=== PATIENT | female | born 1940 | race Caucasian/White ===

== ENCOUNTER 2019-12-24 06:46 | Outpatient (CLI) | payer MEDICARE, OTHER, SELFPAY ==
[2019-12-24 08:00] LABS: Alanine Aminotransferase 26 U/L (4-35); Albumin Level 4.2 g/dL (3.5-5.1); Alkaline Phosphatase 110 U/L (38-126); Aspartate Amino Transferase 28 U/L (14-36); Bilirubin,Total 0.4 mg/dL (0.2-1.3); Blood Urea Nitrogen 16 mg/dL (7-17); Calcium 9.2 mg/dL (8.4-10.2); Carbon Dioxide 33 mmol/L (22-30); Chloride 99 mmol/L (98-107); Estimated Glomerular Filt Rate > 60; Glucose 93 mg/dL (65-105); Potassium 4.8 mmol/L (3.4-5.0); Sodium 140 mmol/L (137-145)
[2019-12-24 08:35] LABS: Vitamin D 25 Hydroxy 68.6 ng/mL
== END 2019-12-24 06:47 | disposition home or self-care (01) ==
LOC: ANHLAB 06:50
PROVIDERS: PCP Emergency Medicine; Visit Provider Emergency Medicine
DX: M15.0 Primary generalized (osteo)arthritis (principal); E55.9 Vitamin D deficiency, unspecified
CPT/HCPCS: 36415; 80053; 82306

== ENCOUNTER 2020-03-28 07:44 | Outpatient (CLI) | payer MEDICARE, OTHER, SELFPAY ==
--- NOTE | ~2020-03-28 | MM_ITS ---
EXAMINATION: MM screening [facility] BI w mariel HISTORY: Screening mammogram TECHNIQUE: Craniocaudal and mediolateral oblique 3-D tomosynthesis images were obtained and synthetic 2-D images were generated. CAD analysis was submitted and interpreted. COMPARISON: Comparison to multiple prior studies sequentially, with oldest reviewed study dated 03/24. BREAST PARENCHYMAL COMPOSITION: There are scattered areas of fibroglandular density. FINDINGS: There is no evidence of suspicious mass, calcification, or architectural distortion to sugg est malignancy in either breast. There has been no suspicious interval change. IMPRESSION: 1. No mammographic evidence of malignancy. 2. Recommend routine screening mammography in one year. BI-RADS Category 1: Negative Reviewed, dictated and finalized at location A.
== END 2020-03-28 07:45 | disposition home or self-care (01) ==
LOC: ANHIMG 07:54
PROVIDERS: PCP Emergency Medicine; Visit Provider Emergency Medicine
DX: Z12.31 Encounter for screening mammogram for malignant neoplasm of breast (principal)
CPT/HCPCS: 77063; 77067

== ENCOUNTER 2021-03-30 08:44 | Outpatient (CLI) | payer MEDICARE, OTHER, SELFPAY ==
--- NOTE | ~2021-03-30 | MM_ITS ---
EXAMINATION: MM screening [facility] w mariel HISTORY: Screening TECHNIQUE: Craniocaudal and mediolateral oblique 3-D tomosynthesis images were obtained and synthetic 2-D images were generated. CAD analysis was submitted and interpreted. COMPARISON: Comparison to multiple prior studies sequentially, with oldest reviewed study dated 03/12. BREAST PARENCHYMAL COMPOSITION: There are scattered areas of fibroglandular density. FINDINGS: There is no evidence of suspicious mass, calcification, or architectural distortion to sugg est malignancy in either breast. There has been no suspicious interval change. IMPRESSION: 1. No mammographic evidence of malignancy. 2. Recommend routine screening mammography in one year. BI-RADS Category 1: Negative Reviewed, dictated and finalized at location A.
== END 2021-03-30 08:45 | disposition home or self-care (01) ==
LOC: ANHIMG 08:45
PROVIDERS: PCP Emergency Medicine; Visit Provider Emergency Medicine
DX: Z12.31 Encounter for screening mammogram for malignant neoplasm of breast (principal)
CPT/HCPCS: 77063; 77067

== ENCOUNTER 2021-05-07 11:07 | Emergency (ER) | payer MEDICARE, OTHER, SELFPAY ==
[2021-05-07 11:22] VITALS: BP 151/92; PULSE 73; RESP 18; TEMP 36.5; O2SAT 98
--- NOTE | 2021-05-07 11:32 | ED.SKABFB ---
HPI - Skin/Abscess/Foreign Bdy General Chief complaint: Skin/Abscess/Foreign Body Stated complaint: infection on belly button Source: patient and RN notes reviewed Mode of arrival: ambulatory History of Present Illness HPI narrative: This is a 80-year-old female that presented to urgent care today with complaints of tenderness in reddening to her bellybutton area. Patient notes that she woke up this morning and while taking a shower she noticed that her bellybutton was reddened, swollen and tender to touch. She did apply peroxide and Neosporin to the site. The patient denies SOB, CP, palpitation, extremity numbness, lightheadedness, dizziness, constipation, diarrhea, chills, or fever. She is being treated for cellulitis Related Data Home Medications Medication Instructions Recorded Confirmed cholecalciferol (vitamin D3) 50 2,000 unit PO DAILY 12/30/19 mcg (2,000 unit) capsule cyanocobalamin (vitamin B-12) 2,500 mcg SUBLINGUAL DAILY 12/30/19 2,500 mcg sublingual lozenge multivit with 1 tablet PO DAILY 12/30/19 njxxuqxu-hufq-FZ-lutein 8 mg iron-400 mcg-300 mcg tablet omeprazole 20 mg tablet,delayed 20 mg PO BID 12/30/19 release ascorbic acid (vitamin C) 500 mg 500 mg PO DAILY 01/05/20 chewable tablet vit C 250 mg-vit E 90 mg-zinc 40 See Rx Instructions .ROUTE .COMPLEX 07/05/20 mg-copper 1 [id number] capsule Allergies Allergy/AdvReac Type Severity Reaction Status Date / Time brimonidine Allergy Unknown Other Verified 05/07/21 11:24 dorzolamide Allergy Unknown Other Verified 05/07/21 11:24 timolol Allergy Unknown Other Verified 05/07/21 11:24 Review of Systems Review of Systems: Narrative: A 14 organ system Review of Systems was performed and pertinent positives included in the HPI, otherwise remaining ROS is negative. All systems reviewed & are unremarkable except as noted in HPI and below PMFSH Past Medical History Medical History (Updated 05/07/21 @ 11:31 by JIMI Luna-C) GERD (gastroesophageal reflux disease) H/O malignant neoplasm of breast Vitamin D deficiency disease Family History Family History Sibling Family history of lymphoma Family history of emphysema Patient's sister is in good health Father Acute myocardial infarction, Onset Age: 62 Mother Family history of malignant neoplasm of breast in first degree relative Other Family history of malignant neoplasm Social History Social History Smoking status: Never smoker Alcohol intake: current Exam Narrative: Exam Narrative: GENERAL: This is a well-nourished, well-developed patient, in no apparent distress. HEAD: normocephalic, atraumatic. EYES: PERRL. Sclera clear/white. Vision is grossly intact. EARS: External ears normal, auditory canals clear and without drainage, TMs normal without perforation. Hearing grossly intact. NOSE: External nose normal with no obvious nasal discharge, nares without redness, no rhinorrhea. THROAT: Mucous membranes moist, posterior pharynx clear. NECK: Neck supple, non-tender without lymphadenopathy, masses or thyromegaly. CARDIOVASCULAR: Regular rate and rhythm without murmurs, gallops, or rubs. RESPIRATORY: Clear to auscultation. Breath sounds equal bilaterally. No wheezes, rales, or rhonchi. GASTROINTESTINAL: Abdomen soft, tender to the abdominal area. Nonedematous to the bellybutton area, nondistended. Bowel sounds are active. No hepato-splenomegaly, or palpable masses. No guarding. SKIN: warm, intact with no suspicious lesions or rash, good texture and turgor. NEURO: awake, alert, and oriented to person, place and time. There were no obvious focal neurologic abnormalities. Steady gait EXTREMITIES: Normal range of motion. No edema. No calf tenderness. Negative Homans sign bilaterally. BACK: Nontender without deformity or crepitance.
== END 2021-05-07 11:47 | disposition home or self-care (01) ==
PROVIDERS: Emergency Provider Nurse Practitioner; PCP Emergency Medicine
DX: L03.311 Cellulitis of abdominal wall (principal); K21.9 Gastro-esophageal reflux disease without esophagitis; Z85.3 Personal history of malignant neoplasm of breast; E55.9 Vitamin D deficiency, unspecified
CPT/HCPCS: 99213; G0463

== ENCOUNTER 2021-05-18 10:03 | Emergency (ER) | payer MEDICARE, OTHER, SELFPAY ==
--- NOTE | 2021-05-18 10:08 | ED.EXTPRO ---
HPI - Extremity Problem General Chief complaint: Extremity Problem,Nontraumatic Stated complaint: Rt middle finger swelling Source: patient and RN notes reviewed Mode of arrival: ambulatory History of Present Illness HPI Narrative: This is a 80-year-old female who presented to urgent care with right index finger swelling and redness. According to patient she reached down to her floor to case picker something and did not realize it was a Wasp. Wasp on her her finger began to swell and became red and purple in color. The patient denies SOB, CP, palpitation, extremity numbness, lightheadedness, dizziness, constipation, diarrhea, chills, or fever. No obvious signs and symptoms of compartmental syndrome patient is able to move extremity affected finger warm to touch Related Data Home Medications Medication Instructions Recorded Confirmed cholecalciferol (vitamin D3) 50 2,000 unit PO DAILY 12/30/19 mcg (2,000 unit) capsule cyanocobalamin (vitamin B-12) 2,500 mcg SUBLINGUAL DAILY 12/30/19 2,500 mcg sublingual lozenge multivit with 1 tablet PO DAILY 12/30/19 skkznnck-fviz-WI-lutein 8 mg iron-400 mcg-300 mcg tablet omeprazole 20 mg tablet,delayed 20 mg PO BID 12/30/19 release ascorbic acid (vitamin C) 500 mg 500 mg PO DAILY 01/05/20 chewable tablet vit C 250 mg-vit E 90 mg-zinc 40 See Rx Instructions .ROUTE .COMPLEX 07/05/20 mg-copper 1 [id number]-kbfwwa capsule Allergies Allergy/AdvReac Type Severity Reaction Status Date / Time brimonidine Allergy Mild Itching Verified 05/18/21 10:36 dorzolamide Allergy Mild Itching Verified 05/18/21 10:36 timolol Allergy Mild Itching Verified 05/18/21 10:36 Review of Systems Review of Systems: Narrative: A 14 organ system Review of Systems was performed and pertinent positives included in the HPI, otherwise remaining ROS is negative. All systems reviewed & are unremarkable except as noted in HPI and below PMFSH Past Medical History Medical History (Updated 05/18/21 @ 10:23 by JIMI Luna-C) GERD (gastroesophageal reflux disease) H/O malignant neoplasm of breast Vitamin D deficiency disease Family History Family History Sibling Family history of lymphoma Family history of emphysema Patient's sister is in good health Father Acute myocardial infarction, Onset Age: 62 Mother Family history of malignant neoplasm of breast in first degree relative Other Family history of malignant neoplasm Social History Social History Smoking status: Never smoker Alcohol intake: current Exam Narrative: Exam Narrative: GENERAL: This is a well-nourished, well-developed patient, in no apparent distress. HEAD: normocephalic, atraumatic. EYES: PERRL. Sclera clear/white. Vision is grossly intact. EARS: External ears normal, auditory canals clear and without drainage, TMs normal without perforation. Hearing grossly intact. NOSE: External nose normal with no obvious nasal discharge, nares without redness, no rhinorrhea. THROAT: Mucous membranes moist, posterior pharynx clear. NECK: Neck supple, non-tender without lymphadenopathy, masses or thyromegaly. CARDIOVASCULAR: Regular rate and rhythm without murmurs, gallops, or rubs. RESPIRATORY: Clear to auscultation. Breath sounds equal bilaterally. No wheezes, rales, or rhonchi. GASTROINTESTINAL: Abdomen soft, non-tender, nondistended. Bowel sounds are active. No hepato-splenomegaly, or palpable masses. No guarding. SKIN: warm, intact with no suspicious lesions or rash, good texture and turgor. NEURO: awake, alert, and oriented to person, place and time. There were no obvious focal neurologic abnormalities. Steady gait EXTREMITIES: Normal range of motion. No edema. No calf tenderness. Negative Homans sign bilaterally. Right index finger edematous with erythema BACK: Nontender without deformit
[2021-05-18 10:10] VITALS: BP 148/80; PULSE 79; RESP 17; TEMP 37.1; O2SAT 99
== END 2021-05-18 10:47 | disposition home or self-care (01) ==
PROVIDERS: Emergency Provider Nurse Practitioner; PCP Emergency Medicine
DX: S60.462A Insect bite (nonvenomous) of right middle finger, initial encounter (principal); W57.XXXA Bitten or stung by nonvenomous insect and other nonvenomous arthropods, initial encounter; L03.011 Cellulitis of right finger; K21.9 Gastro-esophageal reflux disease without esophagitis; Z85.3 Personal history of malignant neoplasm of breast; E55.9 Vitamin D deficiency, unspecified
CPT/HCPCS: 99213; G0463

== ENCOUNTER 2021-07-09 15:42 | Emergency (ER) | payer MEDICARE, OTHER, SELFPAY ==
--- NOTE | ~2021-07-09 | XR_ITS ---
XR chest 2V DATE: 07/09/2021 16:22 INDICATION: PA and lateral views TECHNIQUE: 2 views COMPARISON: 01/25/2015 2 view chest 10/04/2016 CT chest abdomen pelvis FINDINGS: Bilateral hyperinflation. Normal heart size. Aortic calcification and mild unfolding. No hi lar or mediastinal enlargement. There is old pulmonary granulomatous disease. No active infiltrate or consolidation, pleural effusion or pulmonary vascular congestion or pneumothorax is detected. Scoliosis and degenerative spurring of the thoracic spine. Diffuse osteopenia. IMPRESSION: Bilateral hyperinflation; no active cardiopulmonary disease Reviewed, dictated and finalized at location A.
[2021-07-09 15:46] VITALS: BP 153/81; PULSE 145; RESP 18; TEMP 36.9; O2SAT 100
--- NOTE | 2021-07-09 15:49 | ECG_ITS ---
Measurements Intervals Vance Rate: 94 P: 60 MN: 177 QRS: 29 QRSD: 80 T: 42 QT: 328 QTc: 410 Interpretive Statements SINUS RHYTHM VENTRICULAR PREMATURE COMPLEX LEFT ATRIAL ENLARGEMENT BASELINE ARTIFACT- I, II, III, AVR, AVL,A VF BORDERLINE ECG Electronically Signed On 07-09-2021 16:01:16 CDT by Tomy Balderrama D.O.
[2021-07-09 16:57] LABS: Anion Gap 11 mmol/L (8-16); Blood Urea Nitrogen 21 mg/dL (7-17); Calcium 9.6 mg/dL (8.4-10.2); Carbon Dioxide 26 mmol/L (22-30); Chloride 104 mmol/L (98-107); Estimated CRCL calculation 41 ml/min; Estimated Glomerular Filt Rate > 60; Glucose 104 mg/dL (65-110); Sodium 141 mmol/L (137-145)
[2021-07-09 17:01] LABS: INR 0.9; Prothrombin Time 12.4 Seconds (11.1-14.7)
[2021-07-09 17:02] LABS: Partial Thromboplastin Time 29.7 SECONDS (22.3-36.8)
[2021-07-09 17:08] LABS: Troponin I < 0.012 ng/mL (0.000-0.034)
[2021-07-09] MEDS: ASPIRIN 81 MG CHEWABLE TABLET 324 MG PO (17:46)
[2021-07-09 17:47] VITALS: BP 150/75; PULSE 68; RESP 15; O2SAT 99
[2021-07-09 17:51] LABS: Basophils Absolute Auto 0.1 K/mm3 (0.0-0.1); Basophils Percent Auto 1.2 % (0.2-1.2); Eosinophils Absolute Auto 0.1 K/mm3 (0-0.3); Eosinophils Percent Auto 0.6 % (0-4.4); Hematocrit 41.8 % (37.0-47.0); Hemoglobin 13.3 g/dL (12.0-15.0); Immature Granulocyte Absolute 0.04 K/mm3 (0.00-0.031); Immature Granulocyte Percent A 0.4 % (0-0.5); Lymphocytes Absolute Auto 2.34 K/mm3 (0.9-3.2); Lymphocytes Percent Auto 22.6 % (18.3-44.2); Mean Corpuscular HGB Conc 31.8 g/dl (32-36); Mean Corpuscular Hemoglobin 28.3 pg (26-34); Mean Corpuscular Volume 88.9 fl (80-100); Mean Platelet Volume 9.4 fl (7.4-10.4); Monocytes Absolute Auto 0.5 K/mm3 (0.1-0.6); Neutrophils Absolute Auto 7.3 K/mm3 (1.3-6.7); Neutrophils Percent Auto 70.2 % (45.5-73.1); Platelet Count Result 399 k/mm3 (150-375); Red Cell Distribution Width 13.9 % (11.5-14.5); White Blood Count 10.4 K/mm3 (4.5-10.0)
--- NOTE | 2021-07-09 19:32 | ED.GENADULT ---
HPI - General Adult General Chief complaint: Unspecified Stated complaint: failed stress test Time Seen by Provider: 07/09/21 17:29 Source: patient Mode of arrival: ambulatory Limitations: no limitations History of Present Illness HPI narrative: 80-year-old with a history of GERD, here with complaints of having having high heart rate. Patient states that she is scheduled for outpatient stress test this afternoon. While she was just about to start the procedure heart rate went up to 140 EKG was done at that time which showed sinus tach but no evidence of any A. fib. Patient at that time denied having any shortness of breath, nausea or vomiting. She was advised to go to the emergency room for further evaluation. Patient states that she has been having intermittent fast heart rate. No previous history of irregular heartbeat. Onset (ago): hour(s) (2) Relieving factors: none Exacerbating factors: none Associated symptoms: denies other symptoms Related Data Home Medications Medication Instructions Recorded Confirmed cholecalciferol (vitamin D3) 50 2,000 unit PO DAILY 12/30/19 07/04/21 mcg (2,000 unit) capsule multivit with 1 tablet PO DAILY 12/30/19 07/04/21 yvkuejhg-lvza-JS-lutein 8 mg iron-400 mcg-300 mcg tablet omeprazole 20 mg tablet,delayed 20 mg PO BID 12/30/19 07/04/21 release ascorbic acid (vitamin C) 500 mg 500 mg PO DAILY 01/05/20 07/04/21 chewable tablet vit C 250 mg-vit E 90 mg-zinc 40 See Rx Instructions .ROUTE .COMPLEX 07/05/20 07/04/21 mg-copper 1 [id number]-jcbxal-kmudvh capsule Allergies Allergy/AdvReac Type Severity Reaction Status Date / Time brimonidine Allergy Mild Itching Verified 07/09/21 15:45 dorzolamide Allergy Mild Itching Verified 07/09/21 15:45 timolol Allergy Mild Itching Verified 07/09/21 15:45 Review of Systems Review of Systems: All systems reviewed & are unremarkable except as noted in HPI and below Constitutional: Constitutional: Reports no additional constitutional complaints Eyes: Eyes: Reports no additional eye complaints ENT: Reports system reviewed and no additional complaints, except as documented Cardiovascular: Cardiovascular: Reports as per HPI Respiratory: Respiratory: Reports no additional respiratory complaints Gastrointestinal: Gastrointestinal: Reports no additional gastrointestinal complaints Musculoskeletal: Musculoskeletal: Reports no additional musculoskeletal complaints Integumentary/Breasts: Skin/Breast: Reports system reviewed and no additional complaints, except as docu Neurologic: Reports system reviewed and no additional complaints, except as documented Psychiatric: Psychiatric: Reports no additional psychiatric complaints PMFSH Past Medical History Medical History GERD (gastroesophageal reflux disease) H/O malignant neoplasm of breast Vitamin D deficiency disease Family History Family History Sibling Family history of lymphoma Family history of emphysema Patient's sister is in good health Father Acute myocardial infarction, Onset Age: 62 Mother Family history of malignant neoplasm of breast in first degree relative Other Family history of malignant neoplasm Social History Social History Smoking status: Never smoker Alcohol intake: current Gender identity (if verbalized by the patient): Female Exam Narrative: GENERAL: Well-appearing, well-nourished, and in no acute distress. HEAD: Normocephalic, atraumatic. EYES: PERRLA and EOMI. ENT: Nares clear, no rhinorrhea or epistaxis. Mucous membranes moist. NECK: Supple. CHEST: Clear to auscultation. No respiratory distress. HEART: Regular rate and rhythm. No murmur heard. Normal peripheral pulses. ABDOMEN: Soft, nontender, nondistended, normal active bowel sounds. EXTREMITIES: Normal
[2021-07-09 19:51] LABS: Troponin I < 0.012 ng/mL (0.000-0.034)
[2021-07-09 19:59] VITALS: BP 139/81; PULSE 78; RESP 20; O2SAT 100
== END 2021-07-09 20:00 | disposition home or self-care (01) ==
PROVIDERS: Emergency Medicine; Emergency Provider Family Medicine; PCP Emergency Medicine
DX: R00.0 Tachycardia, unspecified (principal); Z87.19 Personal history of other diseases of the digestive system; Z85.3 Personal history of malignant neoplasm of breast; Z51.81 Encounter for therapeutic drug level monitoring; Z79.899 Other long term (current) drug therapy
CPT/HCPCS: 36415; 71046; 80048; 84484; 85025; 85610; 85730; 93005; 99284; A9270

== ENCOUNTER 2022-04-08 08:07 | Outpatient (CLI) | payer MEDICARE, OTHER, SELFPAY ==
--- NOTE | ~2022-04-08 | MM_ITS ---
EXAMINATION: MM screening [facility] w mariel HISTORY: Screening TECHNIQUE: Craniocaudal and mediolateral oblique 3-D tomosynthesis images were obtained and synthetic 2-D images were generated. CAD analysis was submitted and interpreted. COMPARISON: Comparison to multiple prior studies sequentially, with oldest reviewed study dated 03/12. BREAST PARENCHYMAL COMPOSITION: There are scattered areas of fibroglandular density. FINDINGS: There is no evidence of suspicious mass, calcification, or architectural distortion to sugg est malignancy in either breast. There has been no suspicious interval change. IMPRESSION: 1. No mammographic evidence of malignancy. 2. Recommend routine screening mammography in one year. BI-RADS Category 1: Negative Reviewed, dictated and finalized at location A.
== END 2022-04-08 08:08 | disposition home or self-care (01) ==
PROVIDERS: PCP Emergency Medicine; Visit Provider Emergency Medicine
DX: Z12.31 Encounter for screening mammogram for malignant neoplasm of breast (principal)
CPT/HCPCS: 77063; 77067

== ENCOUNTER 2022-12-12 14:20 | Outpatient (CLI) | payer MEDICARE, OTHER, SELFPAY ==
--- NOTE | ~2022-12-12 | MR_ITS ---
EXAMINATION: MR shoulder RT wo con DATE: 12/12/2022 15:28 INDICATION: Right rotator cuff injury. TECHNIQUE: Magnetic resonance imaging (MRI) of the right shoulder was performed without intravenous c ontrast. COMPARISON: None. FINDINGS: Coracoacromial arch: The acromion undersurface is curved in morphology (type II). There is moderate acromioclavicular join t osteoarthritis including inferiorly directed osteophytes. There is moderate subacromial/subdeltoid bursitis. Rotator cuff: There is a full-thickness tear of supraspinatus and infraspinatus tendons measuring 4.5 cm anterior t o posterior by 4.0 cm proximal to distal. There is a partial tear of teres minor tendon. There is sev ere subscapularis tendinopathy. There is volume loss of supraspinatus and infraspinatus muscle bellie s. There is mild fatty atrophy of supraspinatus and teres minor muscle bellies and severe fatty atrop hy of infraspinatus muscle belly. Biceps tendon and glenoid labrum: There is a complete tear of biceps tendon. There is degenerative tearing of the glenoid labrum. Fluid: There is a large glenohumeral joint effusion. Bones/cartilage: There is shallow partial-thickness cartilage loss of glenoid. There is full-thickness cartilage loss of superior humeral head with remodeling of the undersurface of the acromion, consistent with cuff ar thropathy. IMPRESSION: 1. 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 2. Severe chondrosis of humeral head and mild chondrosis of glenoid. 3. Complete tear of proximal biceps tendon. 4. Large glenohumeral joint effusion and moderate subacromial/subdeltoid bursitis. Reviewed, dictated and finalized at location A. OR DISABLED CARER IMPRESSION: 1. 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 2. Severe chondrosis of humeral head and mild chondrosis of glenoid. 3. Complete tear of proximal biceps tendon. 4. Large glenohumeral joint effusion and moderate subacromial/subdeltoid bursit is.
== END 2022-12-12 14:21 | disposition home or self-care (01) ==
PROVIDERS: PCP Emergency Medicine; Visit Provider Emergency Medicine
DX: S46.011A Strain of muscle(s) and tendon(s) of the rotator cuff of right shoulder, initial encounter (principal); M12.811 Other specific arthropathies, not elsewhere classified, right shoulder; M75.101 Unspecified rotator cuff tear or rupture of right shoulder, not specified as traumatic; M94.8X1 Other specified disorders of cartilage, shoulder; S46.211A Strain of muscle, fascia and tendon of other parts of biceps, right arm, initial encounter; M25.411 Effusion, right shoulder; M75.51 Bursitis of right shoulder
CPT/HCPCS: 73221

== ENCOUNTER 2023-04-10 10:13 | Outpatient (CLI) | payer MEDICARE, OTHER, SELFPAY ==
--- NOTE | ~2023-04-10 | MM_ITS ---
EXAMINATION: MM screening [facility] BI w mariel HISTORY: Screening mammogram TECHNIQUE: Craniocaudal and mediolateral oblique 3-D tomosynthesis images were obtained and synthetic 2-D images were generated. CAD analysis was submitted and interpreted. COMPARISON: 04/08/2022, 03/2021, 03/28/2020 bilateral screening mammogram examinations BREAST PARENCHYMAL COMPOSITION: There are scattered areas of fibroglandular density. FINDINGS: Surgical clips are noted in the left lower breast; history of partial left mastectomy for p rior breast cancer There is no evidence of suspicious mass, calcification, or architectural distortio n to suggest malignancy in either breast. There has been no suspicious interval change. IMPRESSION: 1. Status post left partial mastectomy for breast cancer. No mammographic evidence of malignancy. 2. Recommend routine screening mammography in one year. BI-RADS Category 2: Benign finding(s). Reviewed, dictated and finalized at location A. IMPRESSION: 1. Status post left partial mastectomy for breast cancer. No mammographic evide nce of malignancy. 2. Recommend routine screening mammography in one year. BI-RADS Category 2: Benign finding(s).
== END 2023-04-10 10:14 | disposition home or self-care (01) ==
LOC: ANHIMG 10:15
PROVIDERS: PCP Emergency Medicine
DX: Z12.31 Encounter for screening mammogram for malignant neoplasm of breast (principal); Z90.12 Acquired absence of left breast and nipple
CPT/HCPCS: 77063; 77067

== ENCOUNTER 2024-05-05 09:28 | Outpatient (CLI) | payer MEDICARE, OTHER, SELFPAY ==
--- NOTE | ~2024-05-05 | MM_ITS ---
EXAMINATION: MM screening [facility] BI w mariel HISTORY: Screening TECHNIQUE: Craniocaudal and mediolateral oblique 3-D tomosynthesis images were obtained and synthetic 2-D images were generated. CAD analysis was submitted and interpreted. COMPARISON: Comparison to multiple prior studies sequentially, with oldest reviewed study dated 03/20. BREAST PARENCHYMAL COMPOSITION: Not dense: There are scattered areas of fibroglandular density. FINDINGS: There is no evidence of suspicious mass, calcification, or architectural distortion to sugg est malignancy in either breast. There has been no suspicious interval change. IMPRESSION: 1. No mammographic evidence of malignancy. 2. Recommend routine screening mammography in one year. BI-RADS Category 1: Negative Reviewed, dictated and finalized at location B.
== END 2024-05-05 09:29 | disposition home or self-care (01) ==
LOC: ANHIMG 09:30
PROVIDERS: PCP Emergency Medicine; Visit Provider Emergency Medicine
DX: Z12.31 Encounter for screening mammogram for malignant neoplasm of breast (principal)
CPT/HCPCS: 77063; 77067

== ENCOUNTER 2025-01-28 13:01 | Outpatient (CLI) | payer MEDICARE, OTHER, SELFPAY ==
--- NOTE | ~2025-01-28 | DEXA_ITS ---
Bone Density Report Name: NILTON MANZANO Age: 84 Sex: Female Ethnicity: White Date of : 1940 Indication: postmenopausal osteoporosis; height loss; cancer; hysterectomy; Referring Provider: GRETEL BERNSTEIN Study: Bone densitometry was performed. Exam Date: January 28, 2025 Accession number: [id number] Bone Density: Region BMD T-score Z-score Classification AP Spine(L1-L4) 0.770 -2.5 0.4 Osteoporosis Femoral Neck (Left) 0.563 -2.6 -0.1 Osteoporosis Total Hip (Left) 0.735 -1.7 0.6 Osteopenia Femoral Neck (Right) 0.524 -2.9 -0.4 Osteoporosis Total Hip (Right) 0.643 -2.4 -0.1 Osteopenia Total Hip Mean 0.689 -2.1 0.3 Osteopenia World Health Organization criteria for BMD impression classify patients as: Normal (T-score at or above -1.0), Osteopenia (T-score between -1.0 and -2.5), or Osteoporosis (T-score at or below -2.5). 10-year Fracture Risk: FRAX not reported because: Some T-score for Spine Total or Hip Total or Femoral Neck at or below -2.5 Previous Exams: Region Exam Age BMD T-score BMD Change BMD Change Date g/cm2 vs Baseline vs Previous AP Spine (L1-L4) 01/28/2025 84 0.770 -2.5 -0.066 (-7.9%) -0.002 (-0.2%) 03/24/2019 78 0.771 -2.5 -0.064 (-7.7%) -0.018 (-2.3%) 02/12/2017 76 0.790 -2.3 -0.046 (-5.5%) -0.046 (-5.5%) 03/08/2014 73 0.836 -1.9 Total Hip(Left) 01/28/2025 84 0.735 -1.7 -0.059 (-7.5%) 0.003 (0.5%)# 03/24/2019 78 0.732 -1.7 -0.063 (-7.9%) -0.037 (-4.8%) 02/12/2017 76 0.768 -1.4 -0.026 (-3.3%) -0.026 (-3.3%) 03/08/2014 73 0.794 -1.2 Total Hip(Right) 01/28/2025 84 0.643 -2.4 -0.138 (-17.6% -0.021 (-3.2%) 03/24/2019 78 0.665 -2.3 -0.116 (-14.9% -0.052 (-7.3%) 02/12/2017 76 0.717 -1.8 -0.064 (-8.2%) -0.064 (-8.2%) 03/08/2014 73 0.781 -1.3 *Denotes significance at 95% confidence level, LSC for AP Spine = 0.022 g/cm2, LSC for Total Hip = 0.027 g/cm2 # Denotes dissimilar scan types or analysis methods Clinical Information Provided by Patient: Has used the following medications: HRT (i.e. estrogen/hormone therapy), Vitamin D Has the following medical conditions: Cancer, Hysterectomy Patient maximum height was 62 Menopause Age: 49 Drinks caffeinated beverages Onset of menses at age 8 Number of children 1 Impression: The patient has osteoporosis, based on the Right Femoral Neck T-score. No significant bone loss was observed. Discussion: INCREASED RISK OF FRACTURE. BONE DENSITY IS UNDESIRABLY LOW AT ONE OR MORE SKELETAL SITES, CONSISTENT WITH POSTMENOPAUSAL OSTEOPOROSIS. This patient's lowest T-score meets the World Health Organization's (WHO) criteria for osteoporosis at one or more sites (T-score -2.5 or below). In untreated patients, the risk of osteoporotic fracture increases approximately two-fold for each 1.0 SD decrease in T-score. Low bone density is not the only risk factor for fracture; also consider factors such as patient's age, frailty or poor health, risk of falling, risk of injury, previous osteoporotic fracture, family history of osteoporosis, cigarette smoking, low body weight, etc. Not everyone with low bone mineral density has osteoporosis; osteomalacia and other metabolic bone disorders should also be considered. Patients who have osteoporosis should be evaluated for specific diseases and conditions (secondary causes) that may cause or contribute to bone loss. The [place] Association of Clinical Endocrinologists (AACE) and National Osteoporosis Foundation (NOF) recommend pharmacologic intervention for all postmenopausal women whose T-score is in this range. The patient should follow a healthful lifestyle (good nutrition with adequate calcium and vitamin D, and appropriate weight-bearing exercise). Follow-Up: Consider a repeat BMD and Vertebral Fracture Assessment (VFA) exam in 2 years or sooner if medically necessary, to reassess this patient's status. Reported by: MARIO on 01/28/2025 1:41:00 PM. Reviewed, dictated and finalized at location [facility]
--- OUTSIDE RECORDS SUMMARY | 2025-01-28 13:06 | XMS_ITS | Clinical Summary ---
Author Organization [facility] Address [address] [facility], [address] [address] Phone Care Team Providers Care Prop Maker Name Role Phone Stan Hughes MD Primary Care Provider [phone] Tobias Conte DO Unavailable [phone] Allergies Active Allergy Reactions Criticality Noted Date Comments Brimonidine Other (see Comments) 08/29/2016 Eyes itching and burning Medications anastrozole (ARIMIDEX) 1 MG Tablet 6 Active XALATAN 0.005 % Solution Reported on 12/19/2016 6 Active Cholecalciferol (VITAMIN D3) 1000 UNIT Tablet Take by mouth. Activ e oxyCODONE-aceta minophen (PERCOCET) 5-325 MG Tablet Take 1 Tab by mouth every 4 hours as needed for Pain. Reported on 12/19/2016 Active timolol (TIMOPTIC) 0.5 % Solution 6 Active latanoprost (XALATAN) 0.005 % Solution Place 1 Drop in affected eye(s) nightly. Active omeprazole (PRILOSEC) 40 MG CAPSULE DELAYED RELEASE Take 1 Cap by mouth daily. 90 Cap 3 6 Active polyethylene glycol (MIRALAX) Powder Use entire 255g bottle with 64oz of clear liquid as directed for colonoscopy prep. 255 g 0 6 Active Additional Information Patient not taking.Reported on 12/19/2016 CALCIUM PO Take 1 Tab by mouth daily. Active Multiple Vitamins-Minera ls (PRESERVISION AREDS PO) Take 1 Tab by mouth daily. Active Inulin (FIBER CHOICE PO) Take by mouth. Acti ve Probiotic Product (PROBIOTIC DAILY PO) Take by mouth. Activ e hyoscyamine (LEVSIN) 0.125 MG Tablet Take 1 Tab by mouth every 8 hours as needed for Cramping. 60 Tab 0 7 Active Active Problems Problem Noted Date Diagnosed Date Hx of adenomatous colonic polyps 12/19/2016 Esophageal dysmotility 12/19/2016 Gastroesophageal reflux disease 12/19/2016 Immunizations Immunization Administration Dates Next Due Covid-19, Mrna, Lnp-s, Pf, 30 Mcg/0.3 Ml Dose (P fizer) 12/28/2020,12/07/2020 Family History Medical History Relation Name Comments Lung Cancer Brother Heart Disease Father Breast Cancer Mother Cancer Other 1 niece pancreatic Stomach Cancer Other 2 nephew Leukemia/Lymphoma Sister Relation Name Status Comments Brother Father Mother Other 1 niece Alive Other 2 nephew Alive Sister Social History Tobacco Use Types Packs/Day Years Used Date Smoking Tobacco: Never Tobacco Cessation:Counseling Given: Yes Alcohol Use Standard Drinks/Week Comments No 0 (1 standard drink = 0.6 oz pur e alcohol) Comments No Sex and Gender Information Value Date Recorded Sex Assigned at Not on file Legal Sex Female 7:15 PM CDT Gender Identity Not on file Sexual Orientation Not on file 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 on file Not on file Not on file Last Filed Vital Signs Vital Sign Reading Time Taken Comments Blood Pressure 120/72 12/19/2016 1:16 PM [employer] WORK[employer] Pulse 70 12/19/2016 1:16 PM [employer] Temperature 36.9 C (98.4 F) 12/19/2016 1:16 PM [employer] WORKER Respiratory Rate 18 12/19/2016 1:16 PM [employer] WORKER Oxygen Saturation 96% 12/19/2016 1:16 PM [employer] BANK WORKER Inhaled Oxygen Concentration - - Weight 60.4 kg (133 lb 3.2 oz) 12/19/2016 1:16 P M [employer] Height 157.5 cm (5' 2 ) 12/19/2016 1:16 PM [employer] BANK WORKER Body Mass Index 24.36 12/19/2016 1:16 PM [employer]LO[employer] BANK WORKER Plan of Treatment Health Maintenance Due Date Last Done Comments DEXA Bone Density 1940 Hepatitis C Virus (HCV) Screening 1940 Mammogram Unilateral 1940 TdaP Immunization 1940 Zoster Immunization (1 of 2) 1958 Pneumococcal Immunization (5 0+ years) (1 of 1 - PCV) 1989 Respiratory Syncytial Virus (RSV) Immunization (Adult) (1 - 1-dose 75+ series) 2014 SARS-COV-2 Immunization (3 - Pfizer risk series) 01/25/2021 12/28/2020, 12/07/2020 Influenza Immunization (#1) 2024 Hepatitis B Immunization Aged Out No longer eligible based on patient's age to complete this topic Meningococcal Immunization (ACWY) Aged Out No longer eligible b ased on patient's age to complete this topic Rotavirus Immunization Aged Out No lo nger eligible based on patient's age to complete this topic Insurance MEDICARE [facility] Care Teams Prop Maker Relationship Specialty Start Date End Date Stan Hughes MD [address] [place] [address] PCP - General Internal Medicine 08/28/16 Tobias Conte DO [address] [place] [address] Gastroenterology 08/29/16
--- OUTSIDE RECORDS SUMMARY | 2025-01-28 13:06 | XMS_ITS | CONTINUITY OF CARE DOCUMENT ---
Author Name jose garcia Address Unknown Organization [facility] Address [address] [place] [address] [address] [place] [address] Phone [phone] Care Team Providers Care Payloader Operator Name Role Phone jose garcia Unavailable Unavailable INSURANCE PROVIDERS Payer name Policy type / Coverage type [place] red green party ID [employer] [id number] [place] Medicare [id number]
--- OUTSIDE RECORDS SUMMARY | 2025-01-28 13:06 | XMS_ITS | Clinical Summary ---
Author Organization [facility] Address [address] [place] [id number] Care Team Providers Care Black Leather Trimmer Name Role Phone Unavailable Primary Care Provider Unavailabl e Social History Tobacco Use Types Packs/Day Years Used Date Smoking Tobacco: Never Assessed Comments Unknown Sex and Gender Information Value Date Recorded Sex Assigned at Not on file Legal Sex Female 4:13 PM CDT Gender Identity Not on file Sexual Orientation Not on file Plan of Treatment Health Maintenance Due Date Last Done Comments DTaP, Tdap and Td Vaccines ( 1 - Tdap) 1958 Zoster Vaccines (1 of 2) 1989 Pneumococcal Vaccine: 65+ Ye ars (1 of 1 - PCV) 2004 RSV Immunization or 60+ Years (1 - 1-dose 75+ series) 2014 COVID-19 Vaccine ( - 2023-2 5 season) 2024 Influenza Adult (#1) 2024 Meningococcal B Vaccine Aged Out No l onger eligible based on patient's age to complete this topic Meningococcal Vaccine Aged Out No brenda robel eligible based on patient's age to complete this topic RSV Immunizations Under 20 Months Aged Out No longer eligible based on patient's age to complete this topic
--- OUTSIDE RECORDS SUMMARY | 2025-01-28 13:06 | XMS_ITS | Encounter Summary ---
Author Organization [facility] Address [address] [place] [address] Phone Care Team Providers Care Aviation Mechanic Name Role Phone Stan Hughes MD Primary Care Provide r Ruthann Jose DO Unavailable [phone] Nasir Childs MD Unavailable [phone] Marta Cowan SPRING WINDER Unavailable [phone] Encounter Details Date Type Department Care Team (Late st Contact Info) Description 05/01/2020 Orders Only [facility] Scanning, Provider Social History Tobacco Use Types Packs/Day Years Used Date Smoking Tobacco: Never Smokeless Tobacco: Never Alcohol Use Standard Drinks/Week Comments Yes 0 (1 standard drink = 0.6 oz pur e alcohol) Rare AUDIT-C Answer Date Recorded Frequency of Alcohol Consumption Monthly or less 01/11/2019 Average Number of Drinks Not on file 019 Frequency of Binge Drinking Not on file 12/25 Comments No Sex and Gender Information Value Date Recorded Sex Assigned at Not on file Legal Sex Female 6:08 AM TRIAL LAWYER Gender Identity Female 10/24/2020 1:12 PM TRIAL LAWYER Sexual Orientation Not on file documented as of this encounter Plan of Treatment Not on file documented as of this encounter Procedures Procedure Name Priority Date/Time Associated Diagnosis Comments SCAN - LABS 05/01/2020 documented in this encounter Results * SCAN - LABS (05/01/2020) us Provider Scanning Final Result documented in this encounter Visit Diagnoses Not on filedocumented in this encounter Additional Health Concerns Infection Onset Date Last Indicated Resolved Time COVID: Suspected 05/01/2020 05/01/2020 05/15/2020 3:06 AM CDT documented as of this encounter Care Teams Aviation Mechanic Relationship Specialty Start Date End Date Stan Hughes MD [address] [place] [address] PCP - General 01/09/17 Ruthann Jose DO [address] [place] [address] Referring Physician General Surgery 06/30/18 Nasir Childs MD [address] [place] [address] Medical Oncologist/Director Of Casework Services Hematology and Oncology 04/07/19 07/02/22 Marta Cowan NP [address] [place] [id number] Nurse Practitioner Medical Oncology 07/03/22 documented as of this encounter
--- OUTSIDE RECORDS SUMMARY | 2025-01-28 13:06 | XMS_ITS | Continuity of Care Document ---
Author Name [facility] Organization [facility] Care Team Providers Care Braiding Machine Operator Name Role Phone [facility] Unavailable Unavailable Medications Combined list of outpatient medications from Department of Defense and Veterans Affairs facilities.Medications provided include 1) outpatient medications from the last 15 months, and 2) patient-reported medications. Medication Details Route Status Patient Instructions Prescription Expires Prescription Number Last Dispense Date Ordering Provider Order Date Order Qty Source apixaban 2.5 mg tablet 2.5 mg, Oral, BID, # 180 EA, 3 total refill(s ), Hard Stop Oral (given by mouth) Ordered 2025 5 2024 180.0 Ambulat ory Pharmac y Eliquis 2.5 mg tablet See Instruct ions, # 180 EA, 3 total refill(s ), Hard Stop Complet ed 12/10/2024 4 2024 180.0 Ambulat ory Pharmac y Eliquis 2.5 mg tablet See dose instruct ions in comments , # 180 EA, 1 total refill(s ), Acute Complet ed 09/09/2023 3 2022 180.0 Ambulat ory Pharmac y Eliquis 2.5 mg tablet See dose instruct ions in comments , # 180 EA, 3 total refill(s ), Acute Complet ed 10/14/2023 3 2022 180.0 Ambulat ory Pharmac y latanoprost 0.005% eye drops [2.5mL] See Instruct ions, 0, # 2 mL, 5 total refill(s ), Hard Stop Discont inued 01/21/2025 4 2024 2.5 Ambulat ory Pharmac y latanoprost 0.005% eye drops [2.5mL] See Instruct ions, # 2.5 mL, 3 total refill(s ), Hard Stop Discont inued 07/03/2023 3 2022 2.5 Ambulat ory Pharmac y latanoprost 0.005% eye drops [2.5mL] See Instruct ions, # 2 mL, 5 total refill(s ), Hard Stop Discont inued 04/01/2024 4 2023 2.5 Ambulat ory Pharmac y latanoprost 0.005% eye drops [2.5mL] See Instruct ions, Eye-Both , # 7.5 mL, 4 total refill(s ), Soft Stop Both eyes Ordered 5 2024 7.5 Ambulat ory Pharmac y latanoprost 0.005% eye drops [2.5mL] See Instruct ions, # 2 mL, 3 total refill(s ), Hard Stop Discont inued 11/26/2023 4 2023 2.5 Ambulat ory Pharmac y metoprolol succinate ER 25 mg/24 hour tablet 25 mg, Oral, Daily, # 30 EA, 11 total refill(s ), Hard Stop Oral (given by mouth) Ordered 2025 5 2024 30.0 [address]ulat ory Pharmac y omep[address] 40 mg capsule 40 mg, # 90 EA, 3 total refill(s ), Acute Complet ed 03/23/2024 4 2023 90.0 Ambulat ory Pharmac y omeprazole DR 40 mg capsule 40 mg, Oral, Daily, # 90 EA, 3 total refill(s ), Hard Stop Oral (given by mouth) Ordered 03/17/2025 5 2024 90.0 Ambulat ory Pharmac y timolol 0.5% eye drops (gel forming) [5mL] See dose instruct ions in comments , # 10 mL, 4 total refill(s ), Acute Complet ed 02/17/2024 4 2023 10.0 Ambulat ory Pharmac y timolol 0.5% eye drops (gel forming) [5mL] See Instruct ions, Eye-Both , # 20 mL, 4 total refill(s ), Hard Stop Both eyes Ordered 11/10/2025 5 2024 20.0 Ambulat ory Pharmac y timolol 0.5% eye drops (gel forming) [5mL] = 1 drop(s), Eye-Both , every morning, # 10 mL, 4 total refill(s ), Hard Stop Both eyes Discont inued 11/16/2024 4 2024 10.0 Ambulat ory Pharmac y Immunizations Combined list of available immunizations from the Department of Defense and Veterans Affairs facilities. Immunization Series Date Given Administered By Site Reaction Lot Number CVX Code Drug Assistant Spa Manager Status Comments Source tetanus-dipht h toxoids (Td) adult/adol 2016 zzLef t Arm [id number] sanofi pasteur complet ed tetanus-d iphth toxoids (Td) adult/ado l 08/14/17 Given Ambulat ory Pharmac y influenza, injectable, quadrivalent- pf 2016 zzLef t Arm [id number] [employer] complet ed influenza , injectabl e, quadrival ent-pf 08/14/17 Given Ambulat ory Pharmac y pneumococcal polysaccharid e, 23 valent [facility] [id number] [employer] complet ed pneumococ pam polysacch aride, 23 valent 08/14/17 Given Ambulat ory Pharmac y pneumococcal 13-valent conjugate (PCV13) 2015 zzRig Shoplins Arm [id number] expressor software complet ed pneumococ pam 13-valent conjugate (PCV13) 08/13/16 Given Ambulat ory Pharmac y influenza, seasonal, injectable 2010 zzLef t Arm [id number] sanofi pasteur complet ed influenza , seasonal, injectabl e 07/30/11 Given Ambulat ory Pharmac y influenza virus vaccine,split 2009 zzLef t Arm [id number] [employer] complet ed influenza virus vaccine,s plit 08/03/10 Given Ambulat ory Pharmac y zoster vaccine live 2007 zzLef t Arm [id number] [employer] complet ed zoster vaccine live 08/16/08 Given Ambulat ory Pharmac y tetanus, diphtheria, acellular pertu is 2005 zzRig ht Arm [id number] 115 sanofi pasteur complet ed tetanus, diphtheri a, acellular pertussis 07/09/06 Given Ambulat ory Pharmac y tuberculin purified protein derivative 2005 zzLef t Arm [id number] 96 sanofi pasteur complet ed Patient Tolerance : Negative Ambulat ory Pharmac y influenza virus vaccine,split 2004 zzLef t Arm 15 complet ed influenza virus vaccine,s plit 09/10/05 Given Ambulat ory Pharmac y tuberculin purified protein derivative 2004 zzLef t Arm [id number] 96 sanofi pasteur complet ed Patient Tolerance : Negative Ambulat ory Pharmac y influenza virus vaccine,split 2003 15 complet ed influenza virus vaccine,s plit 09/12/04 Given Ambulat ory Pharmac y hepatitis B adult vaccine 2003 zzLef t Arm [id number] 43 [employer] complet ed hepatitis B adult vaccine 07/23/04 Given Ambulat ory Pharmac y hepatitis B adult vaccine 2003 zzLef t Arm [id number] 43 complet ed hepatitis B adult vaccine 02/20/04 Given Ambulat ory Pharmac y tetanus-dipht h toxoids (Td) adult/adol 2003 zzLef t Arm [id number] sanofi pasteur complet ed tetanus-d iphth toxoids (Td) adult/ado l 02/20/04 Given Ambulat ory Pharmac y hepatitis B adult vaccine 2003 zzLef t Arm [id number] 43 complet ed hepatitis B adult vaccine 01/18/04 Given Ambulat ory Pharmac y tuberculin purified protein derivative 2003 zzLef t Arm [id number] 96 sanofi pasteur complet ed Patient Tolerance : Negative Ambulat ory Pharmac y influenza virus vaccine, whole virus 2002 zzLef t Arm [id number] 16 sanofi pasteur complet ed influenza virus vaccine, whole virus 08/10/03 Given Ambulat ory Pharmac y tuberculin purified protein derivative 2001 zzLef t Arm [id number] 96 sanofi pasteur complet ed Patient Tolerance : Negative Ambulat ory Pharmac y tuberculin purified protein derivative 2000 96 complet ed Patient Tolerance : Negative Ambulat ory Pharmac y influenza virus vaccine, whole virus 2000 zzLef t Arm [id number] 16 sanofi pasteur complet ed influenza virus vaccine, whole virus 08/26/01 Given Ambulat ory Pharmac y tuberculin purified protein derivative 1999 zzLef t Arm [id number] 96 sanofi pasteur complet ed Patient Tolerance : Negative Ambulat ory Pharmac y influenza virus vaccine, whole virus 1999 zzLef t Arm [id number] 16 expressor software complet ed influenza virus vaccine, whole virus 09/10/00 Given Ambulat ory Pharmac y tuberculin purified protein derivative 1998 96 complet ed Patient Tolerance : Negative Ambulat ory Pharmac y tuberculin purified protein derivative 1998 [id number] [facility] complet ed Patient Tolerance : Negative Ambulat ory Pharmac y influenza virus vaccine, whole virus 1998 16 complet ed influenza virus vaccine, whole virus 08/24/99 Given Ambulat ory Pharmac y hepatitis B adult vaccine 1998 43 complet ed hepatitis B adult vaccine 04/09/99 Given Ambulat ory Pharmac y tuberculin purified protein derivative [id number] 96 [facility] complet ed Patient Tolerance : Negative Ambulat ory Pharmac y hepatitis B adult vaccine 1989 zzLef t Arm 43 complet ed hepatitis B adult vaccine 04/15/90 Given Ambulat ory Pharmac y hepatitis B adult vaccine 1988 zzLef t Arm 43 complet ed hepatitis B adult vaccine 07/23/89 Given Ambulat ory Pharmac y hepatitis B adult vaccine 1988 zzLef t Arm 43 complet ed hepatitis B adult vaccine 06/06/89 Given Ambulat ory Pharmac y Procedures Combined list of: 1) Procedures from Department of Veterans Affairs facilities going back up to thelast 18 months, not all VA non-surgical procedures are included; 2) All procedures from the Department of Defense facilities. Procedure Procedure Type Code Date Perfomer Comments Sourc e No data available for this section Ambulatory P harmacy Assessment and Plan Combined list of future care activities from Department of Defense and Veterans Affairs facilities (e.g., assessment and plan notes, appointments, orders, and referrals). Additional future care activities may be listed in the Plan of Care section. Result Assessment and Plan Date Source Assessment and Plan No data available for this section 01/28/2025 Ambulatory Pharmacy Functional Status Combined list of recent functional and cognitive assessments recorded at Department of Defense and Veterans Affairs (VA).VA Functional [place] Measurement (FIM) Scale: 1 = Total Assistance (Subject = 0% +), 2 = Maximal Assistance (Subject = 25% +), 3 = Moderate Assistance (Subject = 50% +), 4 = Minimal Assistance (Subject = 75% +), 5 = Supervision, 6 = Modified [place] (Device), 7 = Complete [place] (Timely, Safely). Assessment Date/Time Source Assessment Type Assessment Skill Assessment Score Assessment Details No data available for this section
--- OUTSIDE RECORDS SUMMARY | 2025-01-28 13:06 | XMS_ITS | Clinical Summary ---
Author Organization [facility] Address [address] [place] [address] Care Team Providers Care Folder Inspector Name Role Phone Stan Hughes MD Primary Care Provider [phone] Allergies Active Allergy Reactions Criticality Noted Date Comments Brimonidine Other (See Comments) 08/29/2016 Eyes itching and burning Medications cholecalciferol, vitamin D3, 1,000 unit Take by mouth. Active omeprazole (PriLOSEC) 40 mg Capsule, Delayed Release(E.C.) Take 20 mg by mouth . 08/29/2016 Active timolol (TIMOPTIC) 0.5 % solution 08/09/2016 Active vit C/E/Zn/coppr/lut ein/zeaxan (PRESERVISION AREDS-2 ORAL) Take 1 Tablet by mouth. Active multivitamin/iro n/folic acid (CENTRUM COMPLETE ORAL) Take by mouth. 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, estrogen receptor positive 03/31/2018 Aromatase inhibitor use 03/31/2018 Family History Medical History Relation Name Comments Breast Cancer Maternal Grandmother Breast Cancer Mother at ag e 58 Relation Name Status Comments Maternal Grandmother Mother Social History Tobacco Use Types Packs/Day Years Used Date Smoking Tobacco: Never Smokeless Tobacco: Never Alcohol Use Standard Drinks/Week Comments Yes 0 (1 standard drink = 0.6 oz pur e alcohol) occassionally Comments No Sex and Gender Information Value Date Recorded Sex Assigned at Not on file Legal Sex Female 9:24 AM CDT Gender Identity Not on file Sexual Orientation Not on file Last Filed Vital Signs Vital Sign Reading Time Taken Comments Blood Pressure 147/82 03/31/2019 8:51 AM CDT Pulse 73 03/31/2019 8:51 AM CDT Temperature 36.8 C (98.2 F) 03/31/2019 8:51 AM CDT Respiratory Rate - - Oxygen Saturation 96% 03/31/2019 8:51 AM CDT Inhaled Oxygen Concentration - - Weight 62.1 kg (136 lb 12.8 oz) 03/31/2019 8:51 AM CDT Height 160 cm (5' 3 ) 03/31/2019 8:51 AM CDT Body Mass Index 24.23 03/31/2019 8:51 AM CDT Plan of Treatment Health Maintenance Due Date Last Done Comments DTAP/TDAP/TD VACCINES (1 - Tdap) 1959 PNEUMOCOCCAL VACCINE 50+ YEARS (1 of 1 - PCV) 10/25/19 89 ZOSTER VACCINE (1 of 2) 1989 OSTEOPOROSIS SCREENING 2004 RSV VACCINE (60+ or ) (1 - 1-dose 75+ series) 2014 INFLUENZA VACCINE (#1) 2024 Insurance MEDICARE PART A AND B [employer] Care Teams Folder Inspector Relationship Specialty Start Date End Date Stan Hughes MD [address] [address] PCP - General Internal Medicine 03/31/18
--- OUTSIDE RECORDS SUMMARY | 2025-01-28 13:06 | XMS_ITS | Clinical Summary ---
Author Organization [facility] Address [address] [place] [id number] Care Team Providers Care Store Sales Consultant Name Role Phone Stan Hughes MD Primary Care Provide r Ruthann Jose DO Unavailable [phone] Marta Cowan BANANA RIPENING ROOM SUPERVISOR Unavailable [phone] Allergies Active Allergy Reactions Criticality Noted Date Comments Povidone-Iodine Other (See comments) Low 06/23/2018 Pt says 10% Betadine swab used on ocular surface prior to injection caused Blepharitis Brimonidine Tartrate Itching,Swelling Medium 6 Dorzolamide Itching Low Medications vitamins A,C,D-kbzh-idhtlf (ICAPS) [id number],320-226-200 jpbs-ni-gvmw capsule 2 tablets by mouth daily in the morning Active cholecalciferol (VITAMIN D-3) 2,000 unit tabletIndications :Vitamin D Deficiency Take 1 tablet (2,000 Units total) by mouth every morning Active ftemxops-aor-XC-l ycopen-lutein 0.4-300-250 mg-mcg-mcg tabletIndications :Vitamin Deficiency Prevention Take 1 tablet by mouth every morning Active ascorbic acid (VITAMIN C) 500 mg tablet,chewableIn dications:Vitamin C Deficiency Take 1 tablet/chew tab (500 mg total) by mouth every morning Active omeprazole (PriLOSEC) 40 mg capsuleIndication s:Stress Ulcer Prophylaxis Take 1 capsule (40 mg total) by mouth daily before breakfast 90 capsule 3 4 03/17/20 25 Active metoprolol XL (TOPROL-XL) 25 mg extended release tablet Take 1 tablet (25 mg total) by mouth daily 30 tablet 11 4 10/25/20 25 Active apixaban (ELIQUIS) 2.5 mg tabletIndications :atrial fibrillation Take 1 tablet (2.5 mg total) by mouth 2 (two) times a day 180 tablet 3 4 Active timolol (TIMOPTIC-XE) 0.5 % ophthalmic gel-formingIndica tions:Primary open angle glaucoma (POAG) of both eyes, severe stage Administer into both eyes 2 (two) times a day Please allow a 90 day supply. 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 May for surgical consult but ultimately elected to observe for now. F/u in 6 mos. Assessment & Plan (08/13/2024 9:19 AM CDT): To see Dr May to see if treating band K and Elschnig pearls may be appropriate, difficult to see the retina at this point Regurgitation of food 08/27/2023 Other thrombophilia 10/14/2022 Ascending aortic aneurysm 04/15/2022 Chronic anticoagulation 10/08/2021 Other chest pain 08/28/2021 Hospital discharge follow-up 08/28/2021 PAF (paroxysmal atrial fibrillation) 08/27/2021 Cystoid macular edema of left eye 03/20/2021 Assessment & Plan (02/06/2024 10:01 AM CDT): Noncentral and stable with central GA Esophageal dysphagia 04/19/2020 Overview (04/19/2020): Added automatically from request for surgery [id number] Uveitis of left eye 12/02/2019 Assessment & Plan (12/03/2019 9:27 AM SHEET TESTER): Inflammation improving following intravitreal injection of antibiotics yesterday. Assessment & Plan (12/02/2019 10:22 AM SHEET TESTER): There is significant cell in the anterior and posterior chamber of the left eye. The view to the posterior pole was quite difficult but by ultrasound the retina appears attached. In the vitreous cavity on ultrasound there appears to be cell as well. I am concerned that this may represent an infectious and ophthalmitis, recommended vitreous biopsy followed by antibiotic injection to the left eye today. We will also start topical steroid after the antibiotics are in place. I have discussed the risks and benefits of the procedures and the guarded prognosis patient understands her current situation wished to proceed. Left endophthalmia 12/02/2019 Assessment & Plan (08/13/2024 9:19 AM CDT): Remote history of infection, treated Assessment & Plan (03/14/2020 9:04 AM CDT): Status post (s/p) tap inject OS and resolved Assessment & Plan (12/29/2019 8:42 PM SHEET TESTER): In setting of GDD (s/p) vitreous tap and intravitreal antibiotic injection (vancomycin and ceftazidime) to the left eye 12/02/19 Resolved No growth to date, +PMN's. Last week she had increased inflammation after tapering PF. Quiet now on PF QID, slow taper. Assessment & Plan (12/23/2019 9:34 AM SHEET TESTER): In setting of GDD status post (s/p) vitreous tap and intravitreal antibiotic injection (vancomycin and ceftazidime) to the left eye 12/02/19 Resolved No growth to date, +PMN's. She does have increased inflammation today after tapering PF. No hypopyon or conj injection Back up to QID on PF and f/u next week Assessment & Plan (12/10/2019 10:48 AM SHEET TESTER): In setting of GDD status post (s/p) vitreous tap and intravitreal antibiotic injection (vancomycin and ceftazidime) to the left eye 12/02/19 Resolved No growth to date, +PMN's. OK to stop topical cipro Consider tapering pred forte (PF) QID Assessment & Plan (12/06/2019 9:27 AM SHEET TESTER): 4 days status post (s/p) vitreous tap and intravitreal antibiotic injection (vancomycin and ceftazidime) to the left eye. Patient continues to improve: Denies eye pain, better VA. No growth to date, +PMN's. Continue Pred Forte 4 times a day in the left eye and topical cipro QID OS, timolol qAM OS See Dr. Barrios this week. Assessment & Plan (12/04/2019 9:14 AM SHEET TESTER): Continues to improve following vitreous tap and intravitreal antibiotic injection (vancomycin and ceftazidime) to the left eye. Denies eye pain, improved VA. No growth to date, +PMN's. Continue Pred Forte 4 times a day in the left eye and topical cipro QID OS, timolol qAM OS RTC Friday at 9:30am Assessment & Plan (12/03/2019 9:30 AM SHEET TESTER): Improving following vitreous tap and intravitreal antibiotic injection to the left eye. No growth to date, +PMN's. Recommended she continue Pred Forte 4 times a day in the left eye, and begin topical cipro QID OS. The patient will obtain a new bottle of timolol for use in the left eye. RTC one day. Assessment & Plan (12/02/2019 5:07 PM SHEET TESTER): Likely endophthalmitis, recommend intravitreal injections and vitreous tap. Risks, benefits, alternatives reviewed with patient. Patient understands wished to proceed. Peripheral visual field defect of right eye 06/27 Overview (07/09/2019): Added automatically from request for surgery [id number] Keratitis 02/08/2019 Ptosis of eyelid, right 12/16/2018 Malignant neoplasm of lower- outer quadrant of left breast of female, estrogen receptor positive 06/25/2018 Pseudophakia, both eyes 04/21/2018 Assessment & Plan (01/19/2025 2:31 PM CDT): Elizabeth. Observe. Assessment & Plan (05/18/2024 8:39 AM CDT): Stable. Observe. Assessment & Plan (09/24/2023 11:37 AM SHEET TESTER): Stable. Observe. 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 Check thin blebs at every visit Assessment & Plan (01/19/2025 2:31 PM CDT): IOP too high on 1 class today. CPM with chester 0.5% gfs bid OU. Add latanoprost qhs OU. F/u with Dr. Fang in 3 mos as scheduled. F/u with Laurel in 6 mos. Assessment & Plan (09/14/2024 2:02 PM SHEET TESTER): here for follow up IOP right eye Seen yesterday by Dr. Isbell IOP was in 50s OD started on 4 classes OU and diamox IOP /11 today on exam bleb appears elevated and looks like there is flow suspect possible temporary occlusion of the xen? seen with Dr. Fang f/u 1 week iop check plan: continue simbrinza/timolol/latanprost OD continue latan/timolol OS stop diamox Assessment & Plan (09/13/2024 4:35 PM SHEET TESTER): IOP elevated to 65mmHg OD on presentation today. Pt reports pain in right eye started last and has been intermittent since then. There is still a bleb present superiorly, however, the pressure suggests that the xen is not functioning. IOP OD was lowered to 50 mmHg in office with PO diamox and topical timolol/brim/dorz. Discussed case with glaucoma fellow. They are agreeable to seeing the patient tomorrow. Dispensed 4 250mg tablets of diamox to the patient today and advised her to take two pills at dinner time and two pills upon waking in the morning. I dispensed a bottle of Simbrinza for bid dosing OD. She is to use her latanoprost OU and timolol bid OU tonight and tomorrow morning. Follow up tomorrow with the glaucoma service. Assessment & Plan (05/17/2024 11:43 AM CDT): Intraocular pressure (IOP) today 15/20, off drops OD If intraocular pressure (IOP) increases right eye (OD) or left eye (OS), need to add additional drop therapy Latanoprost at bedtime (QHS) OS, Timolol BID left eye (OS) RTC 4mo for Win visual field (HVF) and intraocular pressure (IOP) check Assessment & Plan (04/01/2024 11:19 AM CDT): IOP OD below goal - ok for single digits but will try to stop timolol OD. If IOP low teens ok to observe OS - GVF with paracentral scotoma - at this IOP and since she does not notice severe changes, ok to observe. With band K, diode next option and could cause issues with vision loss. HVf OD with paracentral island in sup arc - relatively stable. Obs If IOP OD high teens or OS in mid 20's, please send back IOP check 6-8 weeks off timolol OD with Dr. Mayfield Assessment & Plan (02/06/2024 10:03 AM CDT): Followed by Dr Mcgregor and has appt in March Assessment & Plan (11/25/2023 11:14 AM SHEET TESTER): On chester OU and xal OS. IOP OD slightly low but no choroidals and will keep glaucoma under good control S/P XEN OD. For OS no need for vit - can destabilize lens. Do not rec another procedure OS given atrophy in macula and risk. Given her age, do not rec diode OS unless IOP in 20's. She prefers a conservative approach Will recheck IOP with me GVF OS and HVF OD Assessment & Plan (09/24/2023 12:59 PM SHEET TESTER): Goal IOP mid teens OU. IOP above goal OS and having some discomfort with latanoprost. Cannot tolerate brimonidine and dorzolamide. Tolerating timolol. CPM with timolol QAM OU and QHS OS. Can consider holding timolol OD given low iop. Schedule for consult with Dr. Mcgregor given iop above goal OS on nearly max drops. Assessment & Plan (07/03/2023 1:24 PM CDT): Goal iop at mid teens OU per Dr. Mcgregor's last notes. IOP at goal OD but above goal OS at 22mmHg today. Taking timolol GFS qam OU. Supratherapeutic OD. Very thin bleb OD with conj thinning adjacent to tube, but lindsay negative today. Sensitivities to brimonidine and dorzolamide. D/c latanoprost due to orbitopathy. Given minimal contraindication to latanoprost, will resume taking this OS. Continue the timolol qam OS only. Okay to d/c timolol OD given low iop. F/u iop ck in 2 mos. Assessment & Plan (02/18/2023 2:43 PM CDT): Goal of stability and iop at mid teens OU per Dr. Mcgregor's last note. IOP at goal OD at 10mmHg but borderline OS at 15mmHg. tonopen readings from recent retina appts near 20 OS. Taking timolol GFS qam OU. Sensitivities to brimonidine, dorzolamide and latanoprost. VF stable OD. VF concerning for progression sup temp OS. Shorten follow up to return in 3 months for repeat VF + IOP check + bleb check. Assessment & Plan (06/26/2021 10:32 AM CDT): Intra-ocular pressure return on a tree was in the 20s and when I recheck with applanation he was also 20 in both eyes. This is a solitary rading for her and I will have her see the glaucoma doctor soon to re-evaluate and determine if any additional pharmacotherapy is essentially at this time. Assessment & Plan (04/04/2020 8:42 AM CDT): Feeling much better with lubrication OD OS on pred QID - dec to TID X 2 weeks then BID X 2 weeks then daily until sees Dr. Schmitt If no cell then ok to dc F/U with me prn issues - please check bleb Q3-4mo and if leak OD refer back for possible needling. Assessment & Plan (12/30/2019 9:42 AM SHEET TESTER): Bleb leak noted 2 weeks ago which resolved on emycin and timolol - lindsay negative last week although leak site was very thing. - No leak, if recurrs will needle to decompress bleb. - use genteal gel PM For OS - taper pred to BID then continue taper. F/U Dr. Jones as scheduled in a few weeks for steroid taper. Recheck every 3mo - discussed s/s endolpho and blebitis F/U with me 3-4 mo bleb check Assessment & Plan (12/23/2019 9:32 AM SHEET TESTER): IOP check following recent episode of endophthalmitis OS is doing ok from a pressure perspective. IOP at goal on one agent. Bleb leak noted at last visit. Started on emycin and timolol last visit - today the bleb is much better. Lindsay negative although the site of the leak is still thin. - continue ointment and timolol this week RTC 1 week. Pt prefers Assessment & Plan (12/17/2019 10:56 AM SHEET TESTER): IOP check following recent episode of endophthalmitis OS is doing ok from a pressure perspective. IOP at goal on one agent. OD however has a new bleb leak. 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 OD S/p XEN 01/27/19 --off pred and intraocular pressure (IOP) doing well OS --s/p XEN/MMC - then erosion --s/p Molteno --IOP at goal today on current treatment --timolol qAM on left only Discussed light sensitivity is 2/2 to combination of AMD/POAG, continue filter glasses Follow with optom, send back to me if pressures elevated above mid teens despite max gtts. Please check thin bleb every visit. 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 Given better vision pt opts for less invasive option. Will place ab interno XEN with air and 40mcg. 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 F/u in 6 mos for repeat dfe with mac OCT. Assessment & Plan (09/13/2024 4:36 PM SHEET TESTER): Follows with Dr. Barrios. Keep f/u with him as scheduled. Assessment & Plan (05/18/2024 8:39 AM CDT): Keep f/u with Dr. Barrios as scheduled. Assessment & Plan (02/06/2024 10:02 AM CDT): Continue VIVIANE2 and Serena Assessment & Plan (09/24/2023 12:59 PM SHEET TESTER): Keep f/u with Dr. Barrios as scheduled. Assessment & Plan (07/03/2023 1:25 PM CDT): Stable. AREJUSTICE and Serena. Assessment & Plan (03/07/2023 10:06 AM CDT): AG and AREDS2 - continue Assessment & Plan (02/18/2023 2:43 PM CDT): Keep f/u with Dr. Barrios as scheduled. Assessment & Plan (11/05/2022 10:35 AM SHEET TESTER): With overlying ERM Serena AREDS2 Assessment & Plan (07/09/2022 11:21 AM CDT): She has drusen, pigmentary abnormalities and an overlying epiretinal membrane with vitreomacular traction. Given that the vision is relatively good in the symptomatology although she has distortion relatively mild I would recommend observation. Serena AREDS2 Assessment & Plan (08/29/2020 8:28 AM SHEET TESTER): OD drusen with overlying VMT AREDS2 Serena Assessment & Plan (03/14/2020 9:04 AM CDT): CME with ERM AREDS2 Serena Assessment & Plan (09/28/2019 10:44 AM SHEET TESTER): ERM with CME Assessment & Plan (06/01/2019 10:30 AM CDT): Amsler/AREDS2 Exudative age-related macula r degeneration of left eye with active choroidal neovascularization 08/06/2016 Assessment & Plan (01/19/2025 2:30 PM CDT): No signs of exudative disease. Repeat dfe with mac OCT at f/u in 6 mos. Assessment & Plan (09/13/2024 4:37 PM SHEET TESTER): Limited visual potential. Follows with Dr. Barrios. Keep f/u with him as scheduled. 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 Barrios as scheduled. Assessment & Plan (02/06/2024 10:02 AM CDT): H)/o injections, now stable with central GA Assessment & Plan (09/24/2023 12:59 PM SHEET TESTER): Keep f/u with Dr. Barrios as scheduled. Assessment & Plan (08/08/2023 11:22 AM CDT): Had epiretinal membrane (ERM) removal left eye (OS) has central atrophy and surrounding cystoid macular edema (CME) largely degenerative with history of antivegf and steroid injections + glaucoma Assessment & Plan (07/03/2023 1:25 PM CDT): Last injection in 2020. Stable today. Released to me to monitor per Dr. Barrios but pt prefers to see Dr. Barrios for follow up. Schedule for follow up with Dr. Barrios. Assessment & Plan (03/07/2023 10:06 AM CDT): Last injection 2020, Stable, monitor Assessment & Plan (02/18/2023 2:43 PM CDT): Keep f/u with Dr. Barrios as scheduled. Assessment & Plan (11/05/2022 10:35 AM SHEET TESTER): Stable central atrophy and surrounding CME , h/o VMT and erm s.p PPV Assessment & Plan (07/09/2022 11:21 AM CDT): Stable OS with central atrophyS/ p PPV OS Have discussed PPV OD vs observation, and she is stable and would like to observe Assessment & Plan (03/05/2022 10:31 AM CDT): Stable OS with central atrophy Assessment & Plan (10/30/2021 10:20 AM SHEET TESTER): CME and vision remain stable to slightly improve from last visit. H/o triesence in 02/2021 and avastin 12/2020. Assessment & Plan (08/21/2021 10:39 AM CDT): Also had h/o ERM with CME sp PPV CME is worse but foveal clear of cysts with underlying atrophy H/o triesence in 02/2021 and avastin 12/2020 Observe for now and consider inj if central edema recurs Assessment & Plan (06/26/2021 10:28 AM CDT): She had an excellent response to intravitreal triamcinolone that she received in February 2021. She has done very well with a combination of anti VEGF pharmacotherapy and intravitreal steroids. The macular edema at this time in the left eye that usually overlies an area of geographic atrophy has completely resolved. The subretinal hemorrhage is also resolving. Assessment & Plan (03/20/2021 9:25 AM CDT): For response to anti VEGF. The CME is worse. She had a an epiretinal membrane with cystoid macular edema for which she had a vitrectomy. She also has advanced glaucoma. She has an excellent response to try has since possibly because is an inflammatory component as well as a permeability issue and as such we will continue therapy with try essence and at anti VEGF agents whenever there is a suboptimal response or there is evidence that the exudative macular degeneration component is contributing such as with a hemorrhage or subretinal fluid Assessment & Plan (01/02/2021 10:01 AM SHEET TESTER): She has a complicated history of advanced glaucoma requiring filtering surgery in the left eye, significant vitreomacular traction with intraretinal edema that was repaired with vitrectomy, and subsequent exudative AMD that has been partially responsive to intravitreal pharmacotherapy with anti VEGF agents. She had a try as since injection at the last visit and centrally her edema is much improved although she this is complicated visually due to the of geographic atrophy there is still some cystoid edema at about foveal location and will perform an injection of intravitreal anti VEGF agent today. Assessment & Plan (10/31/2020 8:54 AM SHEET TESTER): Refractory CME improved after IVTA in Jun 2020 MAIRA OS in past about 2 montsh ago most recently Multiple injections of steroids and antivegf status post (s/p) ILM peel, refractory edema with limited va potential and also adv glaucoma but vision drops without treatment triesence today OS Assessment & Plan (08/29/2020 8:28 AM SHEET TESTER): Refractory CME improved after IVTA in Jun 2020 MAIRA OS today Assessment & Plan (05/02/2020 11:56 AM CDT): OD stable and pt does not desire surgery Worsened CME os h/o IVTA and antivegf in past and h/o PPV PF OS QID : pt felt she was better Can consider IVTA in 2 months after her esophageal reatments are done Assessment & Plan (12/10/2019 11:03 AM SHEET TESTER): CME os h/o IVTA and antivegf in past Worsened today But recent endophthalmitis ; could be inflammatory closely observe for now Assessment & Plan (11/16/2019 10:12 AM SHEET TESTER): VH has resolved Stable CME os h/o IVTA and antivegf in past Observe for now Assessment & Plan (09/28/2019 10:43 AM SHEET TESTER): New VH OS wants to wait until holidays are over Discussed worry about RT Assessment & Plan (06/01/2019 10:08 AM CDT): Stable CME at 6 weeks after most recent ZEENAT 04/20/19 CME was worse after IVTA ZEENAT OS today Assessment & Plan (04/20/2019 10:01 AM CDT): Stable CME at 6 weeks after ZEENAT CME was worse after IVTA ZEENAT OS today and f/u ZEENAT OS OCT OS in 4-6 weeks Assessment & Plan (03/02/2019 10:06 AM CDT): status post (s/p) pars plana vitrectomy (PPV)/MP left eye (OS) for epiretinal membrane (ERM) left eye (OS) Status post (s/p) IVTA left eye (OS) 10/2018 - edema worsened. Now s/p ZEENAT left eye (OS) 02/02/19 with improvement but with persistent fluid. Repeat ZEENAT left eye (OS) today. Assessment & Plan (02/02/2019 9:45 AM CDT): status post (s/p) pars plana vitrectomy (PPV)/MP left eye (OS) for epiretinal membrane (ERM) left eye (OS) Status post (s/p) IVTA left eye (OS) h/o antiVEGF left eye (OS); she has GA in addition to CNV status post (s/p) IVTA 10/2018 - no gross change at 3 mos Consider ZEENAT left eye (OS) today. Assessment & Plan (11/03/2018 9:48 AM SHEET TESTER): Status post (s/p) IVTA left eye (OS) h/o antiVEGF left eye (OS); she has GA in addition to CNV Good response to IVTA last 06/2018 and ZEENAT ine month prior -now with recurrent fluid OS, recommend repeat IVTA Will do IVTA today OS; will get OCT OS and see Sheisaani in 1 week, if no improvement will Schedule ZEENAT OS Assessment & Plan (08/25/2018 9:16 AM CDT): Status post (s/p) IVTA left eye (OS) h/o antiVEGF left eye (OS); she has GA in addition to CNV Good response to IVTA, observe Assessment & Plan (07/14/2018 11:32 AM CDT): Persistent but improved cystoid macular edema (CME) status post (s/p) ZEENAT left eye (OS) 2 weeks ago. -Will treat with IVT OS as planned today She has a complicated course in the left eye with history of a significant macular pucker for which she underwent a vitrectomy with membrane peeling. She also has undergone glaucoma surgery x 2 (Xen then Molteno) in that eye. As such, although we are treating the exudative AMD with the intravitreal Eylea it remains very likely that she has a inflammatory component that is contributing to the cystoid macular edema. Triesence left eye (OS) today Assessment & Plan (06/23/2018 10:56 AM CDT): Persistent but improved cystoid macular edema (CME) status post (s/p) ZEENAT left eye (OS) 9 weeks ago. -Consider rpt injection left eye (OS) today She has a complicated course in the left eye with history of a significant macular pucker for which she underwent a vitrectomy with membrane peeling. She also has undergone glaucoma surgery in that eye. As such, although we are treating the exudative AMD with the intravitreal Eylea it remains very likely that she has a inflammatory component that is contributing to see to the cystoid macular edema and as such we will consider an injection of intravitreal triamcinolone after the Eylea injection today. Assessment & Plan (04/21/2018 11:17 AM CDT): Persistent cystoid macular edema (CME) status post (s/p) ZEENAT left eye (OS) 9 weeks ago. 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, observe Assessment & Plan (02/06/2024 10:02 AM CDT): She has ERM with VMT and advanced glaucoma We have discussed options, I do not recommend surgery at this time Serena Assessment & Plan (08/08/2023 11:23 AM CDT): Has some distortion right eye (OD) but will observe for now given advanced primary open angle glaucoma (POAG) PCT stable and vision relatively stable Assessment & Plan (03/07/2023 10:05 AM CDT): status post (s/p) PPV OU Patient feels vision and stable, not bothered by metamorphopsia Monitor Assessment & Plan (11/05/2022 10:36 AM SHEET TESTER): status post (s/p) PPV IOS and OD has distortion but she is not ready for surgery Assessment & Plan (07/09/2022 11:21 AM CDT): status post (s/p) PPV OS Assessment & Plan (03/05/2022 10:31 AM CDT): S/ p PPV OS Have discussed PPV OD vs observation, and she is stable and would like to observe Assessment & Plan (10/30/2021 10:19 AM SHEET TESTER): OD stable OS s/p PPV - VA now limited by AMD/atrophy Observe Assessment & Plan (08/21/2021 10:39 AM CDT): status post (s/p) PPV MP OS OD stable Assessment & Plan (06/26/2021 10:28 AM CDT): status post (s/p) ppv os Assessment & Plan (03/20/2021 9:25 AM CDT): status post (s/p) PPV OS Assessment & Plan (01/02/2021 10:04 AM SHEET TESTER): status post (s/p) PPV MP OS Assessment & Plan (10/31/2020 8:54 AM SHEET TESTER): status post (s/p) ILM peel OS OD stable Assessment & Plan (08/29/2020 8:28 AM SHEET TESTER): status post (s/p) PPV OS Assessment & Plan (03/14/2020 9:07 AM CDT): OD stable and pt does not desire surgery Worsened CME os h/o IVTA and antivegf in past and h/o PPV Observe for now and add PF OS QID as pt felt she was better Can consider IVTA in future Does not respond to antiVEGF by itself Assessment & Plan (04/20/2019 10:01 AM CDT): S/pPPV oS Assessment & Plan (03/02/2019 10:21 AM CDT): OD > OS Assessment & Plan (11/03/2018 9:31 AM SHEET TESTER): Status post (s/p) pars plana vitrectomy (PPV)/MP left eye (OS) right eye (OD) stable Assessment & Plan (08/25/2018 9:17 AM CDT): Status post (s/p) pars plana vitrectomy (PPV)/MP left eye (OS) right eye (OD) stable Assessment & Plan (07/14/2018 11:12 AM CDT): Slightly worsened cystoid macular edema (CME) , no metamorphopsia; vision stable 20/30- (was 20/40) right eye (OD) -If vision worsens than 20/40 next visit, consider pars plana vitrectomy (PPV)/MP for right eye ERM -Amsler left eye (OS) status post (s/p) pars plana vitrectomy (PPV)/MP for epiretinal membrane (ERM) Assessment & Plan (06/23/2018 10:33 AM CDT): Slightly worsened cystoid macular edema (CME) , no metamorphopsia; vision also decreased to 20/40 right eye (OD) -If vision worsens than 20/40 next visit, consider pars plana vitrectomy (PPV)/MP for right eye ERM -Amsler left eye (OS) status post (s/p) pars plana vitrectomy (PPV)/MP for epiretinal membrane (ERM) Assessment & Plan (04/21/2018 11:18 AM CDT): Stable cystoid macular edema (CME) , no metamorphopsia -Amsler left eye (OS) status post (s/p) pars plana vitrectomy (PPV)/MP for epiretinal membrane (ERM) 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 Resolved Problems Problem Noted Date Diagnosed Date Resolved Date Contact dermatitis of left eyelid 08/03/2020 05/18/2024 Assessment & Plan (08/03/2020 1:41 PM CDT): Lower lid X 1 week; suspect allergy to Timolol GFS -stop Timolol GFS; start Latanoprost at bedtime (qhs) left eye (OS) instead and wipe away any excess from lid -has used lat in the past successfully -recommend hydrocortisone 1% OTC cream small amount BID X 1 week to lower eyelid -call if no improvement Ocular pain, left eye 09/29/20192019 Assessment & Plan (09/29/2019 12:53 PM SHEET TESTER): Unclear etiology without evidence of intraocular inflammation or infection. Stable visual acuity (VA), limited due to mild Vitreous hemorrhage. No evidence of bleb leak or infection. No epithelial defect . No recent sick contacts. Mildly improved symptoms today since prior, without intraocular procedure at time of clinic visit yesterday. Recommend call for re-evaluation this week if pain progressing or acute decline in vision ATs PRN comfort Vitreous hemorrhage of left eye 09/28/2019 12/10/2019 Assessment & Plan (11/16/2019 10:11 AM SHEET TESTER): Resolved no RT/RD Assessment & Plan (09/28/2019 10:45 AM SHEET TESTER): Discussed r/b/a surgery OS She wants to observe Will see her back in 2-3 weeks Encounters Date Type Department Care Team Description 01/19/2025 2:00 PM CDT Office Visit [facility] [address] [facility] 2nd Floor [address] [place] [phone] Michael Barragan, OD Intermediate stage nonexudative age-related macular degeneration of right eye (Primary Dx); Exudative age-related macular degeneration of left eye with active choroidal neovascularization (HCC); Primary open angle glaucoma (POAG) of both eyes, severe stage; Pseudophakia, both eyes; Band keratopathy of left eye 11/16/2024 Telephone [facility] [address] [place] [address] Richy Fang MD Med Management 11/10/2024 10:15 AM SHEET TESTER Office Visit [facility] [address] [facility] 2nd Floor [address] [place] [phone] Richy Fang MD Primary open angle glaucoma (POAG) of both eyes, severe stage (Primary Dx); Dry eye syndrome of both eyes from Last 3 Months Immunizations Immunization Administration Dates Next Due Influenza, Quad, Adjuvantate d, Intramuscular 07/17/2020 Influenza, Unspecified 08/16/2019,2017,04/22/2017,10/01,04/02/2016,09/14/2015,02/15/2015 ,08/17/2014,03/02/2014,12/01/2013,05/2014 Pfizer SARS-CoV-2 Monovalent Vaccination (12+ Yrs) PURPLE 12/28/2020,12/07/2020 ZOSTER LIVE 11/11/2017, 7,10/01/2016,04/02,09/14/2015 Surgical History Surgery Date Site/Laterality Comments CATARACT EXTRACTION W/ INTRAOCULAR LENS IMPLANT Bilateral VITRECTOMY 10/27/2015 - 10/26/2016 Left UPPER GASTROINTESTINAL ENDOSCOPY 09/25/2016 HYSTERECTOMY 10/27/2014 - 10/26/2015 with bladder repair GLAUCOMA SURGERY 01/27/2019 Right MASTECTOMY, PARTIAL 10/27/2012 - 10/26/2013 Left GLAUCOMA SURGERY 10/27/2016 - 10/26/2017 Left x2 TONSILLECTOMY 10/27/1944 - 10/26/1945 BROW LIFT 10/27/2006 - 10/26/2007 Bilateral BLEPHAROPTOSIS REPAIR 10/27/2018 - 10/26/2019 Right COLONOSCOPY APPENDECTOMY 10/27/1957 - 10/26/1958 EYE SURGERY 08/27/2024 - 09/25/2024 eye pressure was 60 Medical History Medical History Date Comments Macular degeneration Glaucoma GERD (gastroesophageal reflux disease) Stroke (HCC) TIA - 2006, 2011 Breast cancer, left (HCC) 2012 s/p ho rmone tx Dysphagia Hypertension Spastic esophagus s/p botox inj. Family History Medical History Relation Name Comments Heart attack Father Dad Breast cancer Mother Family history of malignant neoplasm of breast - (Added by TW Conv) Cancer Sister Yesika Anesthesia problems Neg Hx Glaucoma Neg Hx Macular degeneration Neg Hx Relation Name Status Comments Father Dad Mother Sister Yesika Social History Tobacco Use Types Packs/Day Years Used Date Smoking Tobacco: Never Smokeless Tobacco: Never Tobacco Cessation:Counseling Given: Not Answered Alcohol Use Standard Drinks/Week Comments Yes 0 (1 standard drink = 0.6 oz pur e alcohol) Rare AUDIT-C Answer Date Recorded Frequency of Alcohol Consumption Not on file 10/09/2023 Q2: How many drinks containi ng alcohol do you have on a typical day when you are drinking? Patient does not drink Frequency of Binge Drinking Not on file 09/26 Personal Safety Answer Date Recorded Have you ever been in or are you currently in a harmful physical or emotional relationship or is someone making you feel afraid or unsafe? Denies 10/09/2023 Comments No Sex and Gender Information Value Date Recorded Sex Assigned at Not on file Legal Sex Female 6:08 AM SHEET TESTER Gender Identity Female 10/24/2020 1:12 PM SHEET TESTER Sexual Orientation Not on file Obstetrics History Last Filed Vital Signs Vital Sign Reading Time Taken Comments Blood Pressure 138/78 2024 10:31 AM SHEET TESTER Pulse 77 2024 10:31 AM SHEET TESTER Temperature 36 C (96.8 F) 10/09/2023 7:16 AM SHEET TESTER Respiratory Rate 21 10/09/2023 7:35 AM SHEET TESTER Oxygen Saturation 97% 2024 10:31 AM SHEET TESTER Inhaled Oxygen Concentration - - Weight 52.2 kg (115 lb) 2024 10:31 AM SHEET TESTER Height 154.9 cm (5' 1 ) 2024 10:31 AM SHEET TESTER Body Mass Index 21.73 2024 10:31 AM SHEET TESTER Plan of Treatment Health Maintenance Due Date Last Done Comments Depression Screening 1940 Osteoporosis Screening-Bone Density Scan 1940 Well Visit 65+ 2004 Zoster Vaccine (2 of 3) 01/06/2018 11/11/19 18, 04/22/2017, 10/01/2016, Additional history exists Covid-19 Vaccine (3 - 2023-2 5 season) 2024 12/28/2020, 12/07/2020 Fall Risk Assessment 10/09/2024 10/09/2023 Influenza Vaccine (Season Ended) 2025 07/17/2020, 08/16/2019, 11/11/2017, Additional history exists DTaP/Tdap/Td Vaccine (3 - Td or Tdap) 08/14/2027 08/14/2017, 07/09/2006, 02/20/2004 Hepatitis B Screening Completed 07/23/2004 , 02/20/2004, 01/18/2004, Additional history exists Pneumococcal vaccine 65+ Completed 08/14/2017, 07/27 Medical Devices Implanted Type Area Administrative Services Manager Device Identifier Shelf Expiration Date Model / Serial / Lot [employer] 5513-001 Xen 150um 45um 6mm Treatment System Preload Injector Intraocular Latex Free - [id number] - [id number] Implanted:Qty: 1 on 01/27/2019 by Sheldon Mcgregor MD at [facility] Other - see comments Right: Eye [employer] [id number] 06/26/2021 5513-001 / [id number] / [id number] Description:XEN GEL STENT Procedures Procedure Name Priority Date/Time Associated Diagnosis Comments OCT, RETINA - OU - BOTH EYES Routine 01/19/2025 2:32 PM CDT 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 Scan locations included subfoveal. Progression has been stable. Findings include macular pucker, vitreous traction. Left Eye Scan locations included subfoveal. Progression has been stable. Findings include subretinal scarring. Michael Barragan OD OPHTH TOMOGRAPHY Edited Res ult - Final from Last 3 Months Insurance MEDICARE [facility] Address: [facility] [id number] [place] [address] [employer] MEDICARE FOR LIFE MEDICARE FOR LIFE Advance Directives For more information, please contact: [phone] * Full Code (Latest Code Status on File) Date Activated Date Inactivated Comments 10/09/2023 6:05 AM 10/09/2023 12:10 PM * Full Code Date Activated Date Inactivated Comments 04/18/2022 1:09 PM 04/18/2022 7:19 PM * Full Code Date Activated Date Inactivated Comments 05/04/2020 10:04 AM 05/04/2020 4:21 PM Care Teams Store Sales Consultant Relationship Specialty Start Date End Date Stan Hughes MD [address] [place] [address] PCP - General 01/09/17 Ruthann Jose DO [address] [place] [address] Referring Physician General Surgery 06/30/18 Marta Cowan NP [address] [place] [phone] Nurse Practitioner Medical Oncology 07/03/22
--- OUTSIDE RECORDS SUMMARY | 2025-01-28 13:06 | XMS_ITS | Referral Summary ---
Author Organization [facility] Address [address] [place] [address] Care Team Providers Care Steel Wheel Engraver Name Role Phone Stan Hughes MD Primary Care Provide r Ruthann Jose DO Unavailable [phone] Marta Cowan INSPECTOR POISING Unavailable [phone] Encounters Date Type Department Care Team Description 01/19/2025 2:00 PM CDT Office Visit [facility] Ophthalmology [address] 2[address] [place] [address] Michael Barragan, SYEDA Intermediate stage nonexudative age-related macular degeneration of right eye (Primary Dx); Exudative age-related macular degeneration of left eye with active choroidal neovascularization (HCC); Primary open angle glaucoma (POAG) of both eyes, severe stage; Pseudophakia, both eyes; Band keratopathy of left eye 11/16/2024 Telephone [facility] Ophthalmology [address] [place] [address] Richy Fang MD Med Management 11/10/2024 10:15 AM STORE DELI MANAGER Office Visit [facility] Ophthalmology [address] 2[address] [place] [address] Richy Fang MD Primary open angle glaucoma (POAG) of both eyes, severe stage (Primary Dx); Dry eye syndrome of both eyes from Last 3 Months Allergies Active Allergy Reactions Criticality Noted Date Comments Povidone-Iodine Other (See comments) Low 06/23/2018 Pt says 10% Betadine swab used on ocular surface prior to injection caused Blepharitis Brimonidine Tartrate Itching,Swelling Medium 6 Dorzolamide Itching Low Medications vitamins A,C,G-yhcs-ztvpwy (ICAPS) 14,320-226-200 plmm-cx-lddu capsule 2 tablets by mouth daily in the morning Active cholecalciferol (VITAMIN D-3) 2,000 unit tabletIndications :Vitamin D Deficiency Take 1 tablet (2,000 Units total) by mouth every morning Active seabowov-dzx-HS-l ycopen-lutein 0.4-300-250 mg-mcg-mcg tabletIndications :Vitamin Deficiency Prevention [...] to see if treating band K and Deisy hornels may be appropriate, difficult to see the [...] (04/19/2020): Added automatically from request for surgery [id number] Uveitis of left eye 12/02/2019 Assessment & Plan (12/03/2019 9:27 AM STORE DELI MANAGER): Inflammation improving following intravitreal injection of antibiotics yesterday. Assessment & Plan (12/02/2019 10:22 AM STORE DELI MANAGER): There is significant cell in the anterior [...] resolved Assessment & Plan (12/29/2019 8:42 PM STORE DELI MANAGER): In setting of GDD (s/p) vitreous tap and intravitreal antibiotic injection (vancomycin and ceftazidime) to the left eye 12/02/19 Resolved No growth to date, +PMN's. Last week she had increased inflammation after tapering PF. Quiet now on PF QID, slow taper. Assessment & Plan (12/23/2019 9:34 AM STORE DELI MANAGER): In setting of GDD status post (s/p) vitreous tap and intravitreal antibiotic injection (vancomycin and ceftazidime) to the left eye 12/02/19 Resolved No growth to date, +PMN's. She does have increased inflammation today after tapering PF. No hypopyon or conj injection Back up to QID on PF and f/u next week Assessment & Plan (12/10/2019 10:48 AM STORE DELI MANAGER): In setting of GDD status post (s/p) vitreous tap and intravitreal antibiotic injection (vancomycin and ceftazidime) to the left eye 12/02/19 Resolved No growth to date, +PMN's. OK to stop topical cipro Consider tapering pred forte (PF) QID Assessment & Plan (12/06/2019 9:27 AM STORE DELI MANAGER): 4 days status post (s/p) vitreous tap and intravitreal antibiotic injection (vancomycin and ceftazidime) to the left eye. Patient continues to improve: Denies eye pain, better VA. No growth to date, +PMN's. Continue Pred Forte 4 times a day in the left eye and topical cipro QID OS, timolol qAM OS See Dr. Barrios this week. Assessment & Plan (12/04/2019 9:14 AM STORE DELI MANAGER): Continues to improve following vitreous tap and intravitreal antibiotic injection (vancomycin and ceftazidime) to the left eye. Denies eye pain, improved VA. No growth to date, +PMN's. Continue Pred Forte 4 times a day in the left eye and topical cipro QID OS, timolol qAM OS RTC Friday at 9:30am Assessment & Plan (12/03/2019 9:30 AM STORE DELI MANAGER): Improving following vitreous tap and intravitreal antibiotic injection to the left eye. No growth to date, +PMN's. Recommended she continue Pred Forte 4 times a day in the left eye, and begin topical cipro QID OS. The patient will obtain a new bottle of timolol for use in the left eye. RTC one day. Assessment & Plan (12/02/2019 5:07 PM STORE DELI MANAGER): Likely endophthalmitis, recommend intravitreal injections and vitreous tap. Risks, benefits, alternatives reviewed with patient. Patient understands wished to proceed. Peripheral visual field defect of right eye 06/27 Overview (07/09/2019): Added automatically from request for surgery [id number] Keratitis 02/08/2019 Ptosis of eyelid, right 12/16/2018 Malignant neoplasm of lower- outer quadrant of left breast of female, estrogen receptor positive 06/25/2018 Pseudophakia, both eyes 04/21/2018 Assessment & Plan (01/19/2025 2:31 PM CDT): Stable. Observe. Assessment & Plan (05/18/2024 8:39 AM CDT): Stable. Observe. Assessment & Plan (09/24/2023 11:37 AM STORE DELI MANAGER): Stable. Observe. Assessment & Plan (06/23/2018 10:33 [...] mos. Assessment & Plan (09/14/2024 2:02 PM STORE DELI MANAGER): here for follow up IOP right eye Seen yesterday by Dr. Isbell IOP was in 50s OD started on 4 classes OU and diamox IOP 08/06 today on exam bleb appears elevated and looks like there is flow suspect possible temporary occlusion of the xen? seen with Dr. Fang f/u 1 week iop check plan: continue simbrinza/timolol/latanprost OD continue latan/timolol OS stop diamox Assessment & Plan (09/13/2024 4:35 PM STORE DELI MANAGER): IOP elevated to 65mmHg OD on presentation [...] March Assessment & Plan (11/25/2023 11:14 AM STORE DELI MANAGER): On chester OU and xal OS. IOP [...] OD Assessment & Plan (09/24/2023 12:59 PM STORE DELI MANAGER): Goal IOP mid teens OU. IOP above [...] 2 weeks then daily until sees Dr. Mayfield. If no cell then ok to dc F/U with me prn issues - please check bleb Q3-4mo and if leak OD refer back for possible needling. Assessment & Plan (12/30/2019 9:42 AM STORE DELI MANAGER): Bleb leak noted 2 weeks ago which [...] check Assessment & Plan (12/23/2019 9:32 AM STORE DELI MANAGER): IOP check following recent episode of endophthalmitis [...] prefers Assessment & Plan (12/17/2019 10:56 AM STORE DELI MANAGER): IOP check following recent episode of endophthalmitis [...] months Assessment & Plan (11/19/2018 9:12 AM STORE DELI MANAGER): OD --IOP above goal on latanoprost and [...] OCT. Assessment & Plan (09/13/2024 4:36 PM STORE DELI MANAGER): Follows with Dr. Barrios. Keep f/u with him as scheduled. Assessment & Plan (05/18/2024 8:39 AM CDT): Keep f/u with Dr. Barrios as scheduled. Assessment & Plan (02/06/2024 10:02 AM CDT): Continue AREDS2 and Karthikler Assessment & Plan (09/24/2023 12:59 PM STORE DELI MANAGER): Keep f/u with Dr. Barrios as scheduled. Assessment & Plan (07/03/2023 1:25 PM CDT): Stable. AREDS and Amsler. Assessment & Plan (03/07/2023 10:06 AM CDT): AG and AREDS2 - continue Assessment & Plan (02/18/2023 2:43 PM CDT): Keep f/u with Dr. Barrios as scheduled. Assessment & Plan (11/05/2022 10:35 AM STORE DELI MANAGER): With overlying ERM Amsler AREDS2 Assessment & Plan (07/09/2022 11:21 AM CDT): She has drusen, pigmentary abnormalities and an overlying epiretinal membrane with vitreomacular traction. Given that the vision is relatively good in the symptomatology although she has distortion relatively mild I would recommend observation. Karthikler AREDS2 Assessment & Plan (08/29/2020 8:28 AM STORE DELI MANAGER): OD drusen with overlying VMT AREDS2 Amsler Assessment & Plan (03/14/2020 9:04 AM CDT): CME with ERM AREDS2 Amsler Assessment & Plan (09/28/2019 10:44 AM STORE DELI MANAGER): ERM with CME Assessment & Plan (06/01/2019 10:30 AM CDT): Amsler/AREDS2 Exudative age-related macula r degeneration of left eye with active choroidal neovascularization 08/06/2016 Assessment & Plan (01/19/2025 2:30 PM CDT): No signs of exudative disease. Repeat dfe with mac OCT at f/u in 6 mos. Assessment & Plan (09/13/2024 4:37 PM STORE DELI MANAGER): Limited visual potential. Follows with Dr. Barrios. [...] GA Assessment & Plan (09/24/2023 12:59 PM STORE DELI MANAGER): Keep f/u with Dr. Barrios as scheduled. [...] scheduled. Assessment & Plan (11/05/2022 10:35 AM STORE DELI MANAGER): Stable central atrophy and surrounding CME , h/o VMT and erm s.p PPV Assessment & Plan (07/09/2022 11:21 AM CDT): Stable OS with central atrophyS/ p PPV OS Have discussed PPV OD vs observation, and she is stable and would like to observe Assessment & Plan (03/05/2022 10:31 AM CDT): Stable OS with central atrophy Assessment & Plan (10/30/2021 10:20 AM STORE DELI MANAGER): CME and vision remain stable to slightly [...] fluid Assessment & Plan (01/02/2021 10:01 AM STORE DELI MANAGER): She has a complicated history of advanced [...] today. Assessment & Plan (10/31/2020 8:54 AM STORE DELI MANAGER): Refractory CME improved after IVTA in Jun 2020 MAIRA OS in past about 2 montsh ago most recently Multiple injections of steroids and antivegf status post (s/p) ILM peel, refractory edema with limited va potential and also adv glaucoma but vision drops without treatment triesence today OS Assessment & Plan (08/29/2020 8:28 AM STORE DELI MANAGER): Refractory CME improved after IVTA in Jun [...] done Assessment & Plan (12/10/2019 11:03 AM STORE DELI MANAGER): CME os h/o IVTA and antivegf in past Worsened today But recent endophthalmitis ; could be inflammatory closely observe for now Assessment & Plan (11/16/2019 10:12 AM STORE DELI MANAGER): VH has resolved Stable CME os h/o IVTA and antivegf in past Observe for now Assessment & Plan (09/28/2019 10:43 AM STORE DELI MANAGER): New VH OS wants to wait until [...] today. Assessment & Plan (11/03/2018 9:48 AM STORE DELI MANAGER): Status post (s/p) IVTA left eye (OS) h/o antiVEGF left eye (OS); she has GA in addition to CNV Good response to IVTA last 06/2018 and ZEENAT ine month prior -now with recurrent fluid OS, recommend repeat IVTA Will do IVTA today OS; will get OCT OS and see Meche in 1 week, if no improvement will [...] Monitor Assessment & Plan (11/05/2022 10:36 AM STORE DELI MANAGER): status post (s/p) PPV IOS and OD has distortion but she is not ready for surgery Assessment & Plan (07/09/2022 11:21 AM CDT): status post (s/p) PPV OS Assessment & Plan (03/05/2022 10:31 AM CDT): S/ p PPV OS Have discussed PPV OD vs observation, and she is stable and would like to observe Assessment & Plan (10/30/2021 10:19 AM STORE DELI MANAGER): OD stable OS s/p PPV - VA now limited by AMD/atrophy Observe Assessment & Plan (08/21/2021 10:39 AM CDT): status post (s/p) PPV MP OS OD stable Assessment & Plan (06/26/2021 10:28 AM CDT): status post (s/p) ppv os Assessment & Plan (03/20/2021 9:25 AM CDT): status post (s/p) PPV OS Assessment & Plan (01/02/2021 10:04 AM STORE DELI MANAGER): status post (s/p) PPV MP OS Assessment & Plan (10/31/2020 8:54 AM STORE DELI MANAGER): status post (s/p) ILM peel OS OD stable Assessment & Plan (08/29/2020 8:28 AM STORE DELI MANAGER): status post (s/p) PPV OS Assessment & [...] OS Assessment & Plan (11/03/2018 9:31 AM STORE DELI MANAGER): Status post (s/p) pars plana vitrectomy (PPV)/MP [...] 09/29/20192019 Assessment & Plan (09/29/2019 12:53 PM STORE DELI MANAGER): Unclear etiology without evidence of intraocular inflammation [...] 12/10/2019 Assessment & Plan (11/16/2019 10:11 AM STORE DELI MANAGER): Resolved no RT/RD Assessment & Plan (09/28/2019 10:45 AM STORE DELI MANAGER): Discussed r/b/a surgery OS She wants to observe Will see her back in 2-3 weeks Immunizations Immunization Administration Dates Next Due Influenza, Quad, Adjuvantate d, Intramuscular 07/17/2020 Influenza, Unspecified 08/16/2019,2017,04/22/2017,10/01,04/02/2016,09/14/2015,02/15/2015 ,08/17/2014,03/02/2014,12/01/2013,05/2014 Pfizer SARS-CoV-2 Monovalent Vaccination (12+ Yrs) PURPLE 12/28/2020,12/07/2020 ZOSTER LIVE 11/11/2017, 7,10/01/2016,04/02,09/14/2015 Social History Tobacco Use Types Packs/Day Years [...] on file Legal Sex Female 6:08 AM STORE DELI MANAGER Gender Identity Female 10/24/2020 1:12 PM STORE DELI MANAGER Sexual Orientation Not on file Last Filed Vital Signs Vital Sign Reading Time Taken Comments Blood Pressure 138/78 2024 10:31 AM STORE DELI MANAGER Pulse 77 2024 10:31 AM STORE DELI MANAGER Temperature 36 C (96.8 F) 10/09/2023 7:16 AM STORE DELI MANAGER Respiratory Rate 21 10/09/2023 7:35 AM STORE DELI MANAGER Oxygen Saturation 97% 2024 10:31 AM STORE DELI MANAGER Inhaled Oxygen Concentration - - Weight 52.2 kg (115 lb) 2024 10:31 AM STORE DELI MANAGER Height 154.9 cm (5' 1 ) 2024 10:31 AM STORE DELI MANAGER Body Mass Index 21.73 2024 10:31 AM STORE DELI MANAGER Plan of Treatment Not on file Medical Devices Implanted Type Area Director Career Services Device Identifier Shelf Expiration Date Model / Serial / Lot [employer] 5513-001 Xen 150um 45um 6mm Treatment System Preload Injector Intraocular Latex Free - [id number] - [id number] Implanted:Qty: 1 on 01/27/2019 by Sheldon Mcgregor MD at [facility] Other - see comments Right: Eye [employer] [id number] 06/26/2021 5513-001 / [id number] / [id number] Description:XEN GEL STENT Procedures Procedure Name Priority [...] has been stable. Findings include subretinal scarring. us Michael Barragan OD OPHTH TOMOGRAPHY Edited Res ult - Final from Last 3 Months Insurance MEDICARE [employer] MEDICARE FOR LIFE MEDICARE FOR LIFE Advance Directives For more information, please contact: [phone] * Full Code (Latest Code Status on File) Date Activated Date Inactivated Comments 10/09/2023 6:05 AM 10/09/2023 12:10 PM * Full Code Date Activated Date Inactivated Comments 04/18/2022 1:09 PM 04/18/2022 7:19 PM * Full Code Date Activated Date Inactivated Comments 05/04/2020 10:04 AM 05/04/2020 4:21 PM Care Teams Steel Wheel Engraver Relationship Specialty Start Date End Date Stan Hughes MD [address] [place] [address] PCP - General 01/09/17 Ruthann Jose DO [address] [place] [address] Referring Physician General Surgery 06/30/18 Marta Cowan NP [address] [place] [id number] Nurse Practitioner Medical Oncology 07/03/22
== END 2025-01-28 13:02 | disposition home or self-care (01) ==
LOC: ANHIMG 13:02
PROVIDERS: PCP Emergency Medicine; Visit Provider Emergency Medicine
DX: M81.0 Age-related osteoporosis without current pathological fracture (principal); M85.851 Other specified disorders of bone density and structure, right thigh; Z78.0 Asymptomatic menopausal state; E55.9 Vitamin D deficiency, unspecified
CPT/HCPCS: 77080

== ENCOUNTER 2025-04-20 14:12 | Emergency (ER) | payer MEDICARE, OTHER, SELFPAY ==
--- NOTE | ~2025-04-20 | CT_ITS ---
CT cervical spine wo con Ordering provider: Violet Carvajal PA-C History: . fall, on eliquis . Comparison: None. Technique: CT of the cervical spine was performed without contrast. Sagittal and coronal reformatted images were also obtained and reviewed. Automated exposure control and iterative reconstruction daisy hnique were employed. The dose-length product was 102.87 mGy-cm. FINDINGS: VERTEBRAE: Minimal minimal anterolisthesis at the level of C5-C6 and C6-C7. Otherwise, No subluxation or acute fracture. The occipital condyles are intact. DISC SPACES: Normal. Multilevel facet joint disease. Multilevel uncovertebral joint osteoarthritic changes. Multilevel int ervertebral foraminal narrowing. PARASPINOUS SOFT TISSUES: Normal. IMPRESSION: No acute osseous abnormality cervical spine. Reviewed, dictated and finalized at location A.
--- NOTE | ~2025-04-20 | XR_ITS ---
EXAM/PROCEDURE: XR chest ET placement - 04/20/2025 15:00 CDT HISTORY: 84 years old Female with intubation TECHNIQUE: Two view(s) of the chest. COMPARISON: None available. FINDINGS: LUNGS/ PLEURA: No focal consolidation. No appreciable pneumothorax or large pleural effusion. HEART/ MEDIASTINUM: Heart appears normal in size. Atherosclerotic calcifications are seen. BONES: Degenerative changes. OTHER: Visualized upper abdomen is unremarkable. Tip of the endotracheal tube is in the right mainste m bronchus. Partially visualized endotracheal tube. IMPRESSION: Tip of the endotracheal tube is in the right mainstem bronchus. Please withdraw approximately 4 to 5 cm. Reviewed, dictated and finalized at location A.
--- NOTE | ~2025-04-20 | CT_ITS ---
EXAMINATION: CT brain wo con DATE: 04/20/2025 14:32 INDICATION: Neck likely patient on aliquots post fall. TECHNIQUE: Computed tomography (CT) of the head was performed without intravenous contrast. Sagittal and coronal reconstructions were performed. The mA was adjusted according to patient size. Iterative reconstruction technique was employed. The dose-length product was 605.33 mGy-cm. COMPARISON: head CT dated 07/19/2019 FINDINGS: No fracture. There is a large left temporal and temporal occipital intraparenchymal hemorrhage measur ing 7 cm AP and 3.7 x 2.8 cm in maximal orthogonal dimensions. Small amount of associated subarachnoi d hemorrhage along the left temporal lobe, sylvian fissure and immediately adjacent inferior left fro ntal lobe. There is also an extensive left subdural hematoma overlying much of the left cerebral guan[place] sphere sparing the vertex which measures up to 8 mm in thickness and extends along the posterior falx and left side of the tentorium where it measures up to 3 mm in thickness. There is some surrounding vasogenic edema in the left cerebral hemisphere. Mass effect results in effacement of the sulci in th e inferior left cerebral hemisphere and of the left lateral ventricle. There is 8 mm subfalcine left to right midline shift. There is also minimal left uncal herniation. No acute infarction. No mass. Ch anges of bilateral intraocular lens replacement. The orbits, paranasal sinuses and mastoid air cells are normal. IMPRESSION: 1. Large left temporal and temporal occipital intraparenchymal hemorrhage with associated subarachnoi d hemorrhage and extensive subdural hematoma with effacement of the left lateral ventricle and 8 mm s ubfalcine left to right midline shift. Dr. Fernandez discussed these findings with Dr. Carvajal at 2:36 PM. Reviewed, dictated and finalized at location A. IMPRESSION: 1. Large left temporal and temporal occipital intraparenchymal hemorrhage with associated subarachnoid hemorrhage and extensive subdural hematoma with effacem ent of the left lateral ventricle and 8 mm subfalcine left to right midline ivone ft. Dr. Fernandez discussed these findings with Dr. Carvajal at 2:36 PM.
[2025-04-20 14:16] VITALS: BP 163/99; PULSE 92; RESP 20; TEMP 36.4; O2SAT 98
--- NOTE | 2025-04-20 14:32 | ECG_ITS ---
Test Date: 2025-04-20 15:21:55 Measurements Intervals [place] Rate: 119 P: 0 AR: 0 QRS: 44 QRSD: 93 T: 86 QT: 348 QTc: 490 Interpretive Statements ATRIAL FLUTTER/TACHYCARDIA WITH RAPID VENTRICULAR RESPONSE CANNOT R/O SEPTAL INFARCT, AGE INDETERMINATE BORDERLINE ST-T WAVE ABNORMALITY- LAT/HIGH LAT LEADS BASELINE ARTIFACT- V2, V4 ABNORMAL ECG No previous ECG available for comparison Electronically Signed On 04-20-2025 16:33:53 CDT by Tomy Balderrama D.O.
[2025-04-20] MEDS: levETIRAcetam 1000MG/NACL100ML 1,000 MG/100 ML BAG 400 MG IVPB (14:40)
[2025-04-20] MEDS: ONDANSETRON INJ 4 MG/2 ML VIAL IV PUSH (14:40)
[2025-04-20 14:41] VITALS: BP 163/128; PULSE 78; RESP 21; O2SAT 95
--- NOTE | 2025-04-20 14:44 | ED_ITS ---
HPI - Head Injury General Chief complaint: Head Injury <Violet Carvajal PA-C - Last Filed: 04/20/25 16:12> Stated complaint: fell. Head injury with pain. on eliquis <Violet Carvajla PA-C - Last Filed: 04/20/25 16:12> Time Seen by Provider: 04/20/25 14:23 <Violet Carvajal PA-C - Last Filed: 04/20/25 16:12> Source: family <Violet Carvajal PA-C - Last Filed: 04/20/25 16:12> Mode of arrival: wheelchair <Violet Carvajal PA-C - Last Filed: 04/20/25 16:12> Limitations: altered mental status <Violet Carvajal PA-C - Last Filed: 04/20/25 16:12> History of Present Illness HPI Narrative: This is a 84-year-old female that presents to the emergency department for altered mental status. Patient's reports she fell about 2 hours ago. Initially she was acting her normal self. She ate lunch and then took a nap. When he went to wake her up from her nap she was very altered. He was able to get her in the car and bring her here. <Violet Carvajal PA-C - Last Filed: 04/20/25 16:12> Related Data Home medications: Home Medications ?Medication ?Instructions ?Recorded ?Confirmed ?Last Taken ?Type cholecalciferol (vitamin D3) 50 2,000 unit PO DAILY 12/30/19 02/02/25 Unknown History mcg (2,000 unit) capsule omqmwxhj-jvjr-kmqe 8 mg-folic 400 1 tablet PO DAILY 12/30/19 02/02/25 Unknown History mcg-K 50 mcg-lutein 300 mcg tablet (Centrum [place] Women) omeprazole 20 mg tablet,delayed 20 mg PO BID 12/30/19 02/02/25 Unknown History release ascorbic acid (vitamin C) 500 mg 500 mg PO DAILY 01/05/20 02/02/25 Unknown History chewable tablet vit C 250 mg-vit E 90 mg-zinc 40 See Rx Instructions .Route .COMPLEX 07/05/20 02/02/25 Unknown History mg-copper 1 ma-wishmu-zbhlol capsule (PreserVision AREDS-2) apixaban 2.5 mg tablet (Eliquis) 2.5 mg PO BID 01/02/22 02/02/25 Unknown History metoprolol succinate 25 mg 12.5 mg PO DAILY 02/02/25 Unknown History tablet,extended release 24 hr (Toprol XL) <Violet Carvajal PA-C - Last Filed: 04/20/25 16:12> Allergies/Adverse reactions: Allergies Allergy/AdvReac Type Severity Reaction Status Date / Time brimonidine Allergy Mild Itching Verified 04/20/25 14:45 dorzolamide Allergy Mild Itching Verified 04/20/25 14:45 <Violet Carvajal PA-C - Last Filed: 04/20/25 16:12> Review of Systems 2 Review of Systems: ROS unobtainable: Yes unobtainable due to mental status <Violet Carvajal PA-C - Last Filed: 04/20/25 16:12> [facility] Past Medical History Medical History: Medical History (Updated 04/21/25 @ 00:00 by Moises Farrell) Macular degeneration Glaucoma Chest pain Strain of rotator cuff of right shoulder Rotator cuff tear Ear lesion BPV (benign positional vertigo) Back pain at L4-L5 level Body mass index [BMI] 24.0-24.9, adult (09/26/15) Body mass index [BMI] 25.0-25.9, adult (01/25/16) Closed fracture of nasal bone with routine healing Esophageal dysmotility Excessive cerumen in right ear canal Fall Fatigue Laceration of skin of forehead Malignant neoplasm of unspecified site of right female breast Malignant neoplasm of unspecified site of unspecified female breast Oral phase dysphagia Oropharyngeal dysphagia Reflux esophagitis Rib pain on left side Right anterior shoulder pain Vertigo Zenker diverticula H/O malignant neoplasm of breast Vitamin D deficiency disease GERD (gastroesophageal reflux disease) <Violet Carvajal PA-C - Last Filed: 04/20/25 16:12> Family History Family History: Family History Sibling Family history of lymphoma Family history of emphysema Patient's sister is in good health Father Acute myocardial infarction, Onset Age: 62 Mother Family history of malignant neoplasm of breast in first degree relative Other Family history of malignant neoplasm <Violet Carvajal PA-C - Last Filed: 04/20/25 16:12> Social History Social History: Social History (Updated 02/02/25 @ 09:45 by Aura De La Fuente MA) Smoking status: Never smoker Alcohol intake: former Substance use: never Substance use type: does not use Do You Feel Safe in your Home?: Yes Lack of Transportation: No Lack of Food: Never True Current Housing: I Have Housing Concerned About Future Housing: No Difficulty Paying Gas/Electric Bills: No Difficulty Paying for Meds: No Currently Unemployed: No Education: Associate Degree Difficulty w/ Childcare or Family Care: No Gender identity (if verbalized by the patient): Female <Violet Carvajal PA-C - Last Filed: 04/20/25 16:12> Exam 2 Narrative: GENERAL: Lethargic HEAD: Normocephalic. Right forehead hematoma EYES: Pupils are equal and round ENT: Nares clear, no rhinorrhea or epistaxis. Mucous membranes moist. Oropharynx without tonsillar hypertrophy exudate or other lesions. CHEST: Clear to auscultation. No respiratory distress. No wheezes rales or rhonchi HEART: Irregularly irregular. No murmur heard. Normal peripheral pulses. EXTREMITIES: No edema. Unable to move any extremities SKIN: Warm, dry, no rash. NEURO: Alert to voice. <Violet Carvajal PA-C - Last Filed: 04/20/25 16:12> Course Course Emergency Course: patient's family updated on the serious nature of her illness. Patient is a full code. They want everything done. They would prefer transfer to [place] < Violet Carvajal PA-C - Last Filed: 04/20/25 16:12> TAIL DOGGER/PA Physician Supervision PA informed me about patient's diagnosis. I did discuss with patient's at bedside the seriousness of her condition. States they had never discussed code status. Discussed options of proceeding versus not. He would like transfer. Given this, best to intubate for airway protection. Patient at times making purposeful movements. Pupils 3mm R and 2mm left, left cloudy. Both sluggishly responsive. C collar cleared after images read. Violet Carvajal already ordered Kcentra, given. Intubated as below. Passive oxygenation with NC in place. No desaturation prior to or during or after procedure. NG/OG placed by DORITA Mina. Confirmation images due appear to be deep, R mainstem and I was present as they were obtained; patient supine at the time. Given this and that will require head of bed elevated to reduce ICP, possibly pushing tube deeper, balloon deflated by RT under my supervision and tube pulled back 4cm, no 20cm at the lip. Still maintaining saturations. Fentanyl gtt for sedation ordered. Flight crew has arrived to transport patient. == Critical Care: 2 or more organ systems involved with high probability of decompensation/ requiring frequent assessment and intervention. Time spend involves discussing with family, members of care team, reviewing images, reviewing vital signs, documenting, etc.. Indepenednetly billable procedures separate. Total Critical Care time: 30 minutes <Sidra Knight MD - Last Filed: 04/21/25 09:42> Consultations Consultation #1: Spoke with Dr. Davison, [facility], about patient and workup who accepts patient as transfer <Violet Carvajal PA-C - Last Filed: 04/20/25 16:12> Date: 04/20/25 <Violet Carvajal PA-C - Last Filed: 04/20/25 16:12> Vital Signs Vital signs: Vital Signs Temperature 97.6 F 04/20/25 14:16 Pulse Rate 92 04/20/25 14:16 Respiratory Rate 20 04/20/25 14:16 Blood Pressure 163/99 H 04/20/25 14:16 Pulse Oximetry 98 04/20/25 14:16 Oxygen Delivery Room Air 04/20/25 14:16 Temperature 97.6 F 04/20/25 14:16 Pulse Rate 115 H 04/20/25 15:36 Respiratory Rate 13 04/20/25 15:36 Blood Pressure 176/81 H 04/20/25 15:36 Pulse Oximetry 100 04/20/25 15:36 Oxygen Delivery Room Air 04/20/25 14:16 <Violet Carvajal PA-C - Last Filed: 04/20/25 16:12> Vital Signs Temperature 97.6 F 04/20/25 14:16 Pulse Rate 92 04/20/25 14:16 Respiratory Rate 20 04/20/25 14:16 Blood Pressure 163/99 H 04/20/25 14:16 Pulse Oximetry 98 04/20/25 14:16 Oxygen Delivery Room Air 04/20/25 14:16 Temperature 97.6 F 04/20/25 14:16 Pulse Rate 115 H 04/20/25 15:36 Respiratory Rate 13 04/20/25 15:36 Blood Pressure 176/81 H 04/20/25 15:36 Pulse Oximetry 100 04/20/25 15:36 Oxygen Delivery Room Air 04/20/25 14:16 <Sidra Knight MD - Last Filed: 04/21/25 09:42> Procedures Intubation Intubation #1: Intubation Date: 04/20/25 <Sidra Knight MD - Last Filed: 04/21/25 09:42> Time out performed: Yes <Sidra Knight MD - Last Filed: 04/21/25 09:42> sedative: Etomidate <Sidra Knight MD - Last Filed: 04/21/25 09:42> Mg Given: 20 <Sidra Knight MD - Last Filed: 04/21/25 09:42> paralytic: Rocuronium <Sidra Knight MD - Last Filed: 04/21/25 09:42> Mg Given: 60 <MD Jacky Soriano Last Filed: 04/21/25 09:42> Laryngoscope: Gabby <Sidra Knight MD - Last Filed: 04/21/25 09:42> Tube Size (cm): 7.0 <Sidra Knight MD - Last Filed: 04/21/25 09:42> Method of Intubation: orotracheal <Sidra Knight MD - Last Filed: 04/21/25 09:42> Number of Attempts: 1 <Sidra Knight MD - Last Filed: 04/21/25 09:42> Tube Secured Depth (cm): 24 <MD Jacky Soriano Last Filed: 04/21/25 09:42> Tube Secured Location: lips <Sidra Knight MD - Last Filed: 04/21/25 09:42> Tube Placement Confirmation: visualized tube passing through cords, equal breath sounds bilaterally and confirmation by capnometry <Sidra Knight MD - Last Filed: 04/21/25 09:42> Patient Tolerated Procedure: well and no complications <Sidra Knight MD - Last Filed: 04/21/25 09:42> MDM - Head Injury MDM Narrative Medical decision making narrative: Patient presents the emergency department for altered mental status after a head injury today. Patient had tripped and fell forward and hit her head. This is about 2 hours prior to arrival. Initially patient was acting her normal self. She had eaten lunch and taken a nap. Upon awakening her she was altered, lethargic, not responding. Her brought her to the hospital for further evaluation. Patient takes apixaban for history of atrial fibrillation. Patient initially opening her eyes to verbal. Is not moving any of her extremities or following any commands. Patient began vomiting, intubated for airway protection. CT brain showing large left temporal and temporal occipital intraparenchymal hemorrhage with associated subarachnoid hemorrhage and extensive subdural hematoma with effacement of the left lateral ventricle an 8 mm [id number] midline shift. CT cervical spine without acute findings. Chest x-ray recommending withdrawing a ET-tube 4-5 cm. This was done. Patient was given a gram of Keppra, Kcentra to reverse anticoagulation. Patient's family updated on the serious nature of her illness. Patient is a full code. They want everything done. They would prefer transfer to [place]. Spoke with Dr. Davison, [facility], about patient and workup who accepts patient as transfer. Patient is being transferred via helicopter <Violet Carvajal PA-C - Last Filed: 04/20/25 16:12> Differential Diagnosis Differential diagnosis: Likely concussion without loss of consciousness, epidural hematoma, closed head injury, subarachnoid hematoma, subdural hematoma and concussion with loss of consciousness <Violet Carvajal PA-C - Last Filed: 04/20/25 16:12> Lab Data Result diagrams: 04/20/25 14:39 04/20/25 14:39 <Violet Carvajal PA-C - Last Filed: 04/20/25 16:12> Labs: Lab Results 04/20/25 04/20/25 Range/Units 14:30 14:39 WBC 14.3 H (4.5-10.0) K/mm3 RBC 5.07 (4.2-5.4) M/mm3 Hgb 13.4 (12.0-15.0) g/dL Hct 42.4 (37.0-47.0) % MCV 83.6 (80-100) fl MCH 26.4 (26-34) pg MCHC 31.6 L (32-36) g/dl RDW 14.8 H (11.5-14.5) % Plt Count 333 (150-375) k/mm3 MPV 9.7 (7.4-10.4) fl Immature Gran % (Auto) 0.5 (0-0.5) % Neut % (Auto) 73.8 H (45.5-73.1) % Lymph % (Auto) 17.7 L (18.3-44.2) % [place] % (Auto) 6.6 (2.6-8.5) % Eos % (Auto) 0.6 (0-4.4) % Baso % (Auto) 0.8 (0.2-1.2) % Lymph # (Auto) 2.53 (0.9-3.2) K/mm3 [place] # (Auto) 1.0 H (0.1-0.6) K/mm3 Eos # (Auto) 0.1 (0-0.3) K/mm3 Baso # (Auto) 0.1 (0.0-0.1) K/mm3 Abs Immat Gran (auto) 0.07 H (0.00-0.031) K/mm3 Absolute Neuts (auto) 10.6 H (1.3-6.7) K/mm3 Absolute Nucleated RBC 0.000 (0.0-0.012) K/mm3 Nucleated RBC % 0.0 (0.0-0.2) % PT 14.8 H (11.1-14.7) Seconds INR 1.2 APTT 23.8 (22.3-36.8) Seconds Sodium 141 (137-145) mmol/L Potassium 4.5 (3.4-5.0) mmol/L Chloride 103 (98-107) mmol/L Carbon Dioxide 25 (22-30) mmol/L Anion Gap 13 H (4-12) mmol/L BUN 21 H (7-17) mg/dL Creatinine 0.74 (0.7-1.0) mg/dL Estim Creat Clear Calc 35 ml/min Estimated GFR > 60 (59 - ) Glucose 143 H (65-110) mg/dL POC Capillary Glucose 153 H (65-105) mg/dl Calcium 9.6 (8.4-10.2) mg/dL Total Bilirubin 0.6 (0.2-1.3) mg/dL AST 39 H (14-36) U/L ALT 25 (6-35) U/L Alkaline Phosphatase 117 (38-126) U/L Total Protein 7.5 (6.3-8.2) g/dL Albumin 4.5 (3.5-5.1) g/dL <Violet Carvajal PA-C - Last Filed: 04/20/25 16:12> Lab Results 04/20/25 04/20/25 Range/Units 14:30 14:39 WBC 14.3 H (4.5-10.0) K/mm3 RBC 5.07 (4.2-5.4) M/mm3 Hgb 13.4 (12.0-15.0) g/dL Hct 42.4 (37.0-47.0) % MCV 83.6 (80-100) fl MCH 26.4 (26-34) pg MCHC 31.6 L (32-36) g/dl RDW 14.8 H (11.5-14.5) % Plt Count 333 (150-375) k/mm3 MPV 9.7 (7.4-10.4) fl Immature Gran % (Auto) 0.5 (0-0.5) % Neut % (Auto) 73.8 H (45.5-73.1) % Lymph % (Auto) 17.7 L (18.3-44.2) % [place] % (Auto) 6.6 (2.6-8.5) % Eos % (Auto) 0.6 (0-4.4) % Baso % (Auto) 0.8 (0.2-1.2) % Lymph # (Auto) 2.53 (0.9-3.2) K/mm3 [place] # (Auto) 1.0 H (0.1-0.6) K/mm3 Eos # (Auto) 0.1 (0-0.3) K/mm3 Baso # (Auto) 0.1 (0.0-0.1) K/mm3 Abs Immat Gran (auto) 0.07 H (0.00-0.031) K/mm3 Absolute Neuts (auto) 10.6 H (1.3-6.7) K/mm3 Absolute Nucleated RBC 0.000 (0.0-0.012) K/mm3 Nucleated RBC % 0.0 (0.0-0.2) % PT 14.8 H (11.1-14.7) Seconds INR 1.2 APTT 23.8 (22.3-36.8) Seconds Sodium 141 (137-145) mmol/L Potassium 4.5 (3.4-5.0) mmol/L Chloride 103 (98-107) mmol/L Carbon Dioxide 25 (22-30) mmol/L Anion Gap 13 H (4-12) mmol/L BUN 21 H (7-17) mg/dL Creatinine 0.74 (0.7-1.0) mg/dL Estim Creat Clear Calc 35 ml/min Estimated GFR > 60 (59 - ) Glucose 143 H (65-110) mg/dL POC Capillary Glucose 153 H (65-105) mg/dl Calcium 9.6 (8.4-10.2) mg/dL Total Bilirubin 0.6 (0.2-1.3) mg/dL AST 39 H (14-36) U/L ALT 25 (6-35) U/L Alkaline Phosphatase 117 (38-126) U/L Total Protein 7.5 (6.3-8.2) g/dL Albumin 4.5 (3.5-5.1) g/dL <Sidra Knight MD - Last Filed: 04/21/25 09:42> Imaging Data Radiologist's impression: ITS Impressions Head CT 04/20/25 14:32 IMPRESSION: 1. Large left temporal and temporal occipital intraparenchymal hemorrhage with associated subarachnoid hemorrhage and extensive subdural hematoma with effacement of the left lateral ventricle and 8 mm subfalcine left to right midline shift. Dr. Fernandez discussed these findings with Dr. Carvajal at 2:[address] 04/20/25 14:44 IMPRESSION: No acute osseous abnormality cervical spine. EXAM/PROCEDURE: XR chest ET placement - 04/20/2025 15:00 CDT HISTORY: 84 years old Female with intubation TECHNIQUE: Two view(s) of the chest. COMPARISON: None available. FINDINGS: LUNGS/ PLEURA: No focal consolidation. No appreciable pneumothorax or large pleural effusion. HEART/ MEDIASTINUM: Heart appears normal in size. Atherosclerotic calcifications are seen. BONES: Degenerative changes. OTHER: Visualized upper abdomen is unremarkable. Tip of the endotracheal tube is in the right mainstem bronchus. Partially visualized endotracheal tube. IMPRESSION: Tip of the endotracheal tube is in the right mainstem bronchus. Please withdraw approximately 4 to 5 cm. <Violet Carvajal PA-C - Last Filed: 04/20/25 16:12> Critical Care Time Critical Care Time Critical Care Time: Yes <Violet Carvajal PA-C - Last Filed: 04/20/25 16:12> Total Critical Care Time: 45 <Violet Carvajal PA-C - Last Filed: 04/20/25 16:12> Discharge Plan Discharge Clinical Impression: Intracranial hemorrhage <Violet Carvajal PA-C - Last Filed: 04/20/25 16:12> Patient Disposition: Acute Care Hospital <RONAN Moe Last Filed: 04/20/25 16:12> Condition: Guarded Prognosis <Violet Carvajal PA-C - Last Filed: 04/20/25 16:12> Patient Language: Latvian <RONAN Moe Last Filed: 04/20/25 16:12> Prescriptions: No Action Centrum [place] Women 8 mg iron-400 mcg-300 mcg tablet 1 tablet PO DAILY cholecalciferol (vitamin D3) 50 mcg (2,000 unit) capsule 2,000 unit PO DAILY omeprazole 20 mg tablet,delayed release (DR/EC) 20 mg PO BID ascorbic acid (vitamin C) 500 mg tablet,chewable 500 mg PO DAILY PreserVision AREDS-2 [id number] ox-reco-tx-mg capsule See Rx Instructions .ROUTE .COMPLEX Rx Instructions: Take 2 tablets by mouth daily; administer with meals Eliquis 2.5 mg tablet 2.5 mg PO BID metoprolol succinate [Toprol XL] 25 mg tablet extended release 24 hr 12.5 mg PO DAILY alendronate [Fosamax] 70 mg tablet 70 mg PO WEEKLY Qty: 12 0RF <Violet Carvajal PA-C - Last Filed: 04/20/25 16:12> Follow-up/Referrals: Stan Hughes MD [Primary Care Provider] - <Violet Carvajal PA-C - Last Filed: 04/20/25 16:12>
[2025-04-20 14:46] LABS: Basophils Absolute Auto 0.1 K/mm3 (0.0-0.1); Basophils Percent Auto 0.8 % (0.2-1.2); Eosinophils Absolute Auto 0.1 K/mm3 (0-0.3); Eosinophils Percent Auto 0.6 % (0-4.4); Hematocrit 42.4 % (37.0-47.0); Hemoglobin 13.4 g/dL (12.0-15.0); Immature Granulocyte Absolute 0.07 K/mm3 (0.00-0.031); Immature Granulocyte Percent A 0.5 % (0-0.5); Lymphocytes Absolute Auto 2.53 K/mm3 (0.9-3.2); Lymphocytes Percent Auto 17.7 % (18.3-44.2); Mean Corpuscular HGB Conc 31.6 g/dl (32-36); Mean Corpuscular Hemoglobin 26.4 pg (26-34); Mean Corpuscular Volume 83.6 fl (80-100); Mean Platelet Volume 9.7 fl (7.4-10.4); Monocytes Percent Auto 6.6 % (2.6-8.5); Neutrophils Absolute Auto 10.6 K/mm3 (1.3-6.7); Neutrophils Percent Auto 73.8 % (45.5-73.1); Platelet Count Result 333 k/mm3 (150-375); Red Blood Count 5.07 M/mm3 (4.2-5.4); Red Cell Distribution Width 14.8 % (11.5-14.5); White Blood Count 14.3 K/mm3 (4.5-10.0)
--- NOTE | 2025-04-20 14:46 | PC.NURSE ---
Dr Knight at bedside to discuss POC w/ pts spouse. Preparing for intubation at this time.
[2025-04-20] MEDS: RAPID SEQUENCE INTUBATION KIT 1 EACH (14:50)
--- NOTE | 2025-04-20 14:54 | PC.NURSE ---
c collar removed by EDP due to neg imaging of C Spine
--- NOTE | 2025-04-20 14:56 | PC.NURSE ---
Dr Knight performed time out for intubation, resp at bedside to assist. Pt given 20 Etomidate and 50 Rocuronium given IVP for sedation. 3 Mac used. + color change w/ bilat lung sounds, equal chest rise and fall, 24 at the lip XRAY at bedside for post procedure
[2025-04-20 14:57] LABS: Alanine Aminotransferase 25 U/L (6-35); Albumin Level 4.5 g/dL (3.5-5.1); Alkaline Phosphatase 117 U/L (38-126); Anion Gap 13 mmol/L (4-12); Aspartate Amino Transferase 39 U/L (14-36); Bilirubin,Total 0.6 mg/dL (0.2-1.3); Blood Urea Nitrogen 21 mg/dL (7-17); Calcium 9.6 mg/dL (8.4-10.2); Carbon Dioxide 25 mmol/L (22-30); Chloride 103 mmol/L (98-107); Estimated CRCL calculation 35 ml/min; Estimated Glomerular Filt Rate > 60; Glucose 143 mg/dL (65-110); Potassium 4.5 mmol/L (3.4-5.0); Sodium 141 mmol/L (137-145); Total Protein 7.5 g/dL (6.3-8.2)
[2025-04-20 14:58] LABS: INR 1.2; Prothrombin Time 14.8 Seconds (11.1-14.7)
[2025-04-20 14:59] LABS: Partial Thromboplastin Time 23.8 Seconds (22.3-36.8)
[2025-04-20] MEDS: HUMAN PROTHROMBIN COMPLEX(PCC) 2,000 UNITS in PREMIXIV 0 ML 314.07 UNITS IV CONT (14:59)
[2025-04-20 15:02] VITALS: BP 163/126; PULSE 105; RESP 28; O2SAT 100
[2025-04-20 15:04] LABS: Glucose Point of Care 153 mg/dl (65-105)
[2025-04-20 15:25] VITALS: BP 174/119; PULSE 108; RESP 22; O2SAT 100
[2025-04-20 15:34] VITALS: PULSE 115; RESP 20
[2025-04-20] MEDS: FENTANYL 2,500MCG/NS250ML(*CRX 2,500 MCG/250 ML BAG IV CONT (15:34)
[2025-04-20 15:36] VITALS: BP 176/81; PULSE 115; RESP 13; O2SAT 100
== END 2025-04-20 15:54 | disposition short-term general hospital (02) ==
PROVIDERS: Emergency Provider Physician Assistant; PCP Emergency Medicine
DX: S06.6X0A Traumatic subarachnoid hemorrhage without loss of consciousness, initial encounter (principal); H35.30 Unspecified macular degeneration; H40.9 Unspecified glaucoma; K21.00 Gastro-esophageal reflux disease with esophagitis, without bleeding; E55.9 Vitamin D deficiency, unspecified; Z85.3 Personal history of malignant neoplasm of breast; I48.92 Unspecified atrial flutter; R00.0 Tachycardia, unspecified; R94.31 Abnormal electrocardiogram [ECG] [EKG]; W01.0XXA Fall on same level from slipping, tripping and stumbling without subsequent striking against object, initial encounter
CPT/HCPCS: 31500; 36415; 70450; 72125; 80053; 82948; 85025; 85610; 85730; 93005; 96365; 96367; 96375; 99291; J1953; J2405; J3010; J7168